=== PATIENT | male | born 1945 | race Caucasian/White ===

== ENCOUNTER 2022-01-03 07:40 | Outpatient (CLI) | payer OTHER, SELFPAY ==
--- NOTE | 2022-01-03 08:07 | MR_ITS ---
WS: [id number] MRI CERVICAL SPINE NONCONTRAST TECHNIQUE: Sagittal T1, T2 and STIR imaging. Axial T2, gradient, and fiesta imaging. CLINICAL INFORMATION: CERVICAL DISC DISORDER COMPARISON: None. FINDINGS: Mild cervical curve. Mild spondylitic changes cervical spine. Disc bulging worse at C3-C4, C4-C5, and C5-C6. Cord signal is normal. C2-C3: Mild LEFT bony foraminal narrowing. Mild disc osteophytic ridging. Spinal canal is patent. C3-C4: Disc osteophyte complex with endplate ridging. Mild facet arthropathy. Mild bilateral bony for aminal narrowing. Spinal canal is patent. C4-C5: Central disc osteophyte protrusion with slight contact of the ventral cervical cord. Advanced LEFT facet arthropathy. Mild bilateral bony foraminal narrowing. C5-C6: Disc osteophyte complex eccentric to the RIGHT. Moderate to advanced RIGHT facet arthropathy. Moderate RIGHT and no significant LEFT bony foraminal narrowing. Spinal canal is patent. C6-C7: No significant disc bulging. Spinal canal and foramen are patent. C7-T1: Disc osteophytic ridging with mild LEFT greater than RIGHT bony foraminal narrowing. Spinal ca nal and is patent. Visualized brain stem structures: Normal. Prevertebral soft tissues: Normal. MR/MR cervical spin wo con* [id number] IMPRESSION: 1. Mild cervical curve. Cord signal is normal. 2. Disc osteophyte protrusion C4-C5 with slight contact of the cervical cord. Mild central canal stenosis. 3. Moderate bony foraminal narrowing RIGHT C5-C6. 4. Asymmetric advanced facet arthropathy LEFT C4-C5 and RIGHT C5-C6. 5. Mild bony foraminal narrowing worse at LEFT C3-C4, LEFT C4-C5, and LEFT C7- T1.
== END 2022-01-03 07:41 | disposition home or self-care (01) ==
PROVIDERS: Visit Provider Family Medicine
DX: M50.221 Other cervical disc displacement at C4-C5 level (principal)
CPT/HCPCS: 72141

== ENCOUNTER → 2022-01-23 14:12 | Outpatient (BNVA) | payer OTHER, SELFPAY | PROVIDERS: PCP Family Medicine; Referring Provider Family Medicine; Visit Provider Orthopaedic Surgery | DX: M54.2 Cervicalgia (principal); M48.02 Spinal stenosis, cervical region; M21.969 Unspecified acquired deformity of unspecified lower leg | CPT/HCPCS: 72050 ==

== ENCOUNTER → 2022-01-24 14:04 | Outpatient (BNVA) | payer OTHER, SELFPAY | PROVIDERS: PCP Family Medicine; Referring Provider Orthopaedic Surgery; Visit Provider Podiatrist Foot & Ankle Surgery | DX: M25.572 Pain in left ankle and joints of left foot (principal) | CPT/HCPCS: 73610 ==

== ENCOUNTER → 2022-07-16 09:16 | Outpatient (BNVA) | payer OTHER, SELFPAY | PROVIDERS: PCP Family Medicine; Visit Provider Family Medicine | DX: I10 Essential (primary) hypertension (principal); E78.5 Hyperlipidemia, unspecified; Z85.46 Personal history of malignant neoplasm of prostate | CPT/HCPCS: 80053; 80061; 84153; 84443; 85025 ==

== ENCOUNTER → 2022-10-27 11:27 | Outpatient (BNVA) | payer OTHER, SELFPAY | PROVIDERS: PCP Family Medicine; Visit Provider Podiatrist Foot & Ankle Surgery | DX: M19.172 Post-traumatic osteoarthritis, left ankle and foot (principal) | CPT/HCPCS: 73610 ==

== ENCOUNTER 2022-12-12 06:15 | Day surgery (SDC) | payer OTHER, SELFPAY ==
[2022-12-11 12:49] VITALS: BMI 26.4
[2022-12-12] VITALS (10 sets, daily range): BP systolic 130–146; BP diastolic 67–76; PULSE 60–74; RESP 12–16; TEMP 17.7–36.3; O2SAT 93–97
[2022-12-12] MEDS: sodium chloride 0.9% 1,000 ML 30 ML IV (07:09)
--- NOTE | 2022-12-12 07:31 | ANES.PREANE2 ---
Pre-Anesthetic Assessment Height/Weight: Height 1.75 m Weight 81.193 kg O2 Del Method 12/12/22 06:33 Preop Diagnosis: Left ankle arthritis Operation Date: 12/12/22 07:50 Proposed Procedures p ?Left ankle fusion 36559,M25.579,M19.179(Left) - Edison Lazaro DPM s Possible subtalar joint arthrodesis, left foot, CPT code 60558(Left) - Edison Lazaro DPM Last intake: Intake Last Liquid Date 12/11/22 Last Liquid Time 23:00 Last Solid Date 12/11/22 Last Solid Time 18:00 Social No alcohol and No tobacco Exam alert, oriented x 3, clear to auscultation bilaterally and regular rate & rhythm (Infrequent irregular heart beat ) Airway Submandibular: within normal limits Cervical ROM: within normal limits Mallampati: Class II Pulmonary Remote history of PE CV/HEM Hypertension None reported Hepatic None reported GI No sig GERD Anesthetic Plan ASA status: 2 Anesthesia: General and Regional (specify below) (Pop Block) Medications/Allergies Home Medications Medication Instructions Recorded Confirmed Last Taken Type omeprazole 20 mg capsule,delayed 20 mg PO DAILY 01/23/22 12/11/22 12/11/22 History release AFO Brace to the left #1 ea 01/24/22 10/27/22 Unknown Rx lovastatin 20 mg tablet See Rx Instructions .Route 06/04/22 12/12/22 12/11/22 Rx .COMPLEX #90 tabs 0800 meloxicam 15 mg tablet See Rx Instructions .Route 06/13/22 12/11/22 12/11/22 Rx .COMPLEX #90 tabs amlodipine 5 mg tablet 5 mg PO DAILY #30 tabs 07/16/22 12/11/22 12/11/22 Rx acetaminophen 500 mg tablet 500 mg PO Q6H PRN Pain 08/12/22 12/12/22 12/11/22 History (Tylenol Extra Strength) 0800 ibuprofen 200 mg tablet 200 mg PO Q6H PRN Pain 08/12/22 12/11/22 12/10/22 20:00 History Allergies Allergy/AdvReac Type Severity Reaction Status Date / Time nortriptyline Allergy Intermediate dysphagia Verified 10/27/22 11:07 lisinopril Allergy Mild ADR-Cough Verified 12/12/22 06:42 propranolol Allergy ALGY-Difficulty Verified 12/12/22 06:43 Swallowing PFSH Anesthesia Medical History Hx of malignant neoplasm of prostate Hyperlipidemia Hypertension Social History Smoking and tobacco status: never smoked Second hand smoke exposure: Yes Alcohol intake: current Alcohol intake frequency: holidays/special occasions only Alcohol type: beer Data Anesthesia Cardiac Studies: No Data to Display
--- NOTE | 2022-12-12 08:03 | P.HP_ITS ---
Providers/Chief Complaint Primary Care Provider: Roger Nassar MD Chief Complaint: M25.579, M19.179 History of Present Illness Cb Mcintyre is a 77 year old male presenting to the clinic for left ankle arthritis. Patient was ordered an AFO sent for triplane support of post medic arthritis of the left ankle. Patient states that he wears his brace but states that his pain has not gotten any better. He is wishing to discuss surgical options. His pain is daily, is unable to stand and walk without instability and pain affecting his overall quality of life. Patient denies any subjective nausea, vomiting, fever, chills, shortness of breath or chest pain. Review of Systems General: Reports: 10 or more systems reviewed and unremarkable except in HPI and below Const: Denies: fever(s) or chills Eyes: Denies: change in vision Card: Denies: chest pain or palpitations Resp: Denies: dyspnea or productive cough GI: Denies: abdominal pain, nausea or vomiting : Denies: flank pain Musc: Reports: extremity pain, joint pain, joint stiffness, limited range of motion and deformity Skin/Breast: Reports: skin tenderness; Denies: rash Neuro: Reports: difficulty walking; Denies: numbness in extremities, sensory changes or frequent falls Psych: Denies: suicidal ideation Lester/Lymph: Denies: easy bruising Medications/Allergies Home Medications Medication Instructions Recorded Confirmed Last Taken Type omeprazole 20 mg capsule,delayed 20 mg PO DAILY 01/23/22 12/11/22 12/11/22 History release AFO Brace to the left #1 ea 01/24/22 10/27/22 Unknown Rx lovastatin 20 mg tablet See Rx Instructions .Route 06/04/22 12/12/22 12/11/22 Rx .COMPLEX #90 tabs 0800 meloxicam 15 mg tablet See Rx Instructions .Route 06/13/22 12/11/22 12/11/22 Rx .COMPLEX #90 tabs amlodipine 5 mg tablet 5 mg PO DAILY #30 tabs 07/16/22 12/11/22 12/11/22 Rx acetaminophen 500 mg tablet 500 mg PO Q6H PRN Pain 08/12/22 12/12/22 12/11/22 History (Tylenol Extra Strength) 0800 ibuprofen 200 mg tablet 200 mg PO Q6H PRN Pain 08/12/22 12/11/22 12/10/22 20:00 History Allergies Allergy/AdvReac Type Severity Reaction Status Date / Time nortriptyline Allergy Intermediate dysphagia Verified 10/27/22 11:07 lisinopril Allergy Mild ADR-Cough Verified 12/12/22 06:42 propranolol Allergy ALGY-Difficulty Verified 12/12/22 06:43 Swallowing PFSH PFSH: Medical History Hx of malignant neoplasm of prostate Hyperlipidemia Hypertension Social History Smoking and tobacco status: never smoked Second hand smoke exposure: Yes Alcohol intake: current Alcohol intake frequency: holidays/special occasions only Alcohol type: beer Dietary Habits: Caffeine: Yes Caffeine intake frequency: coffee Vital Signs Vitals Signs: Last Vital Signs O2 Del Method 12/12/22 06:33 Weight: Weight last 48 hrs Weight 179 lb Physical Exam Narrative: EXAM NARRATIVE: GENERAL: Patient is alert and oriented ?3 and in no acute distress.? The following is a focused bilateral lower extremity exam. VASCULAR: Dorsalis pedis and posterior tibial arteries palpable +2.? Capillary refill time less than 3 seconds to the distal hallux bilaterally. Calf is supple and nontender proximally and distally.? Left ankle edema.? Pedal hair growth present. NEUROLOGICAL: Epicritic and protopathic sensations grossly intact to the lower extremities.? +2 Achilles tendon reflex noted bilaterally.? Negative Tinel sign upon percussion of lower extremity nerves. DERMATOLOGICAL: Lower extremity skin is well-hydrated, normal texture and turgor.? There are no open sores or lesions noted to the lower extremities.? No erythema or ecchymosis present to the bilateral legs and feet. MUSCULOSKELETAL: Exquisite tenderness to palpation at the left ankle globally. Tenderness at the subtalar joint and sinus tarsi. Calcaneal varus.? There is tenderness at the medial gutter, medial deltoid, lateral collateral ligaments and lateral gutter.? Positive talar tilt test to the left ankle.? Talus is in varus and similar reducible. CARDIOVASCULAR: S1, S2, normal rate, normal rhythm.? Dorsalis pedis and posterior tibial arteries palpable. LUNGS: Clear to auscltation, no use of acessory muscles, no crackles or wheezes. A&P Assessment and plan (1) Cavovarus deformity of foot: (2) Arthritis of left ankle: (3) Left ankle instability: (4) Acquired rearfoot varus: Qualifiers: Laterality: left Qualified Code(s): M21.172 - Varus deformity, not elsewhere classified, left ankle Plan 3 views left ankle shows joint space narrowing and varus position of the talus, tibiotalar articular surfaces are not congruent.? 19 degrees of talar tilt into varus appreciated.? Subchondral sclerosis and loss of joint space appreciated with dorsal osteophytes. Sclerosis of the subtalar joint. Calcaneal varus. Has been greater than 3 months out from his not articulating gauntlet style AFO to the left lower extremity and is experiencing increased pain.? States advanced bracing and immobilization has not yielded any relief.? He was hopeful that this would be a viable option unfortunately this is not allowing him to enjoy his hobbies and carry out everyday activities without significant pain.? He is wishing to discuss arthrodesis of his left ankle.? He has discussed total ankle replacement as well as arthrodesis with other surgeons as well as myself previously.? He states that he has given this thought and research and would like to proceed with arthrodesis at next available opportunity. I am recommending tibial talocalcaneal arthrodesis to reduce the rear foot varus. I reviewed at length with the patient, the risks, potential complications, benefits, alternatives, expectations, and typical outcomes associated with the surgery. The risks and potential complications were explained in detail, including but not limited to infection, wound dehiscence or soft tissue complications, bleeding and hematoma, chronic edema, neuritis or nerve damage producing numbness or chronic pain, CRPS, failure to relieve pain or worsening pain, thick / painful / unsightly scar, limited motion / stiffness, malposition, delayed union, malunion, or nonunion, fracture, reaction to implants, anesthetic complications, venous thromboembolism, and deformity recurrence.? I discussed the notion of no regrets with the patient as it pertains to complications and outcomes. The patient seemed to understand the nature of the proposed care and required convalescence. They asked appropriate questions, answered to their satisfaction. They are aware no guarantees can be made as to a satisfactory outcome and they understand there may be other possible unforeseen complications or outcomes not listed here that will be treated accordingly if they arise. There were no written or implied guarantees given to the patient. They gave informed consent to proceed. 12/12/2022 left tibial talocalcaneal arthrodesis.? General anesthetic, popliteal block, OR table, supine, TPS, mini C arm, [place] hardware.? 120 minutes. Coding Level of Care Code Acute Code for [facility] [place] Fwd Diagnoses Cavovarus deformity of foot Q66.10 Arthritis of left ankle M19.072 Left ankle instability M25.372 Acquired rearfoot varus M21.172 Laterality: left
--- NOTE | 2022-12-12 08:03 | W.PM.OPSUD ---
Surgery/Procedure H&P Update DATE OF PROCEDURE: December 12, 2022 DATE H&P PERFORMED: 12/12/22 CHANGES TO PREVIOUS DOCUMENTATION: None PREOP DIAGNOSIS: Left ankle arthritis PLANNED PROCEDURE: Operation Date: 12/12/22 07:50 Proposed Procedures p ?Left ankle fusion 49624,M25.579,M19.179(Left) - Edison Lazaro DPM s Possible subtalar joint arthrodesis, left foot, CPT code 57319(Left) - Edison Lazaro DPM
[2022-12-12] MEDS: ceFAZolin 2,000 MG in sodium chloride 0.9% (plus) 50 ML 100 MG IV (08:22)
--- NOTE | 2022-12-12 11:19 | PM.OP ---
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 Procedure done: Left ankle fusion. CPT code 99377 Left subtalar joint fusion. CPT code 81486 Implants: [place] Silver back lateral tibial talocalcaneal plate [place] locking and nonlocking screws 4.2 millimeter screws, 4.5 millimeter screws [place] V92 [place] 7 mm headed screw at subtalar joint 2-0 Vicryl 3-0 Vicryl Skin kimberlyn Hand Salter: Diana Estimated blood loss: 20 120 min IV fluids: 0 Urine output: None Complications: None Brief History: 3 views left ankle shows joint space narrowing and varus position of the talus, tibiotalar articular surfaces are not congruent.? 19 degrees of talar tilt into varus appreciated.? Subchondral sclerosis and loss of joint space appreciated with dorsal osteophytes.? Sclerosis of the subtalar joint.? Calcaneal varus.? Has been greater than 3 months out from his not articulating gauntlet style AFO to the left lower extremity and is experiencing increased pain.? States advanced bracing and immobilization has not yielded any relief.? He was hopeful that this would be a viable option unfortunately this is not allowing him to enjoy his hobbies and carry out everyday activities without significant pain.? He is wishing to discuss arthrodesis of his left ankle.? He has discussed total ankle replacement as well as arthrodesis with other surgeons as well as myself previously.? He states that he has given this thought and research and would like to proceed with arthrodesis at next available opportunity.? I am recommending tibial talocalcaneal arthrodesis to reduce the rear foot varus.? I reviewed at length with the patient, the risks, potential complications, benefits, alternatives, expectations, and typical outcomes associated with the surgery. The risks and potential complications were explained in detail, including but not limited to infection, wound dehiscence or soft tissue complications, bleeding and hematoma, chronic edema, neuritis or nerve damage producing numbness or chronic pain, CRPS, failure to relieve pain or worsening pain, thick / painful / unsightly scar, limited motion / stiffness, malposition, delayed union, malunion, or nonunion, fracture, reaction to implants, anesthetic complications, venous thromboembolism, and deformity recurrence.? I discussed the notion of no regrets with the patient as it pertains to complications and outcomes. The patient seemed to understand the nature of the proposed care and required convalescence. They asked appropriate questions, answered to their satisfaction. They are aware no guarantees can be made as to a satisfactory outcome and they understand there may be other possible unforeseen complications or outcomes not listed here that will be treated accordingly if they arise. There were no written or implied guarantees given to the patient. They gave informed consent to proceed. Procedure: Under mild sedation the patient was brought to the operating room and placed onto the operating table in supine position. A timeout was performed. Anesthesia was then administered by the anesthesia service. Left popliteal block was performed per anesthesia service. Local anesthesia was injected by myself with 0.5% Marcaine plain in a left five-point nerve block. Well-padded pneumatic tourniquet was applied to the left thigh. The left lower extremity was then scrubbed, prepped and draped utilizing normal aseptic technique. The left lower extremity was exanguinated with an Esmarch bandage and the tourniquet was inflated to 250 mmHg. Attention was directed to the left lateral ankle where a linear longitudinal incision was made over the lateral malleolus coursing proximally to the distal fibula. Incision was made through skin with a #15 blade with dissection carried down through subcutaneous tissue to the layer of periosteum utilizing a combination of sharp and blunt technique. Care was taken to retract and preserve neurovascular and tendinous structures. All bleeders were ligated and cauterized as necessary. Periosteal incision was made and the distal fibula was transected utilizing a Mart osteotomy giving adequate room for hardware fixation of the tibiotalar calcaneal talar joint. The fibula was resected and passed from the operative site and kept on the back table to use as bone graft potentially for the arthrodesis sites. Peroneal tendons were resected and passed from the operative field. Tibiotalar joint was distracted utilizing Steinmann pins and an intermittent and denuded of all articular surface utilizing curettage, osteotomes, saline flush followed by subchondral drilling and fenestrating with fenestrating drill bit both of the distal tibia and talar dome. The subtalar joint was then distracted in a similar fashion utilizing intermittent and Steinmann pins and prepared for arthrodesis utilizing curettage and osteotomes, the subtalar joint both of the articular surface of the calcaneus and inferior portion of the talus were denuded the middle facet anterior side and posterior facet of all articular surface followed by saline flush and subchondral drilling utilizing fenestrating drill bit as well as for scaling with osteotome. The tibiotalar joint and the subtalar joint were held in neutral and slight valgus, neutral dorsiflexion and the second toe held in line with the patella, temporary fixation was utilized with transfixing the ankle joint and subtalar joint with a Steinmann pin followed by fixation utilizing standard AO technique of the tibiotalar and subtalar joint with a silver VAC lateral TTC anatomic plate provided by Leslie with a combination of locking and nonlocking screws. Fixation started within the talus and then compression of the tibiotalar joint utilizing eccentric hole within the plate. Tibial and talar screws were utilized for additional fixation with excellent bony apposition and compression noted. Next a homerun screw from posterior inferior to superior anterior within the posterior facet was utilized this was a [place] 7 mm headed screw with excellent bony apposition and compression noted followed by additional fixation of the lateral calcaneus with an additional 6 [place] screws locking and nonlocking with excellent bony apposition and compression noted. Intraoperative C arm confirmed excellent reduction of the deformity. Rear foot varus was slightly valgus position after arthrodesis and ankle joint was in neutral dorsiflexion. Excellent bony apposition and compression noted at the arthrodesis sites. Bone voids were packed with V92, this was minimal. The incision was flushed with copious months of sterile skin solution and closed in a layered fashion. Periosteum reapproximated utilizing 2-0 Vicryl. Subcutaneous tissue with 3-0 Vicryl and skin with kimberlyn. Dressings consisting of Xeroform, 4 x 4's, Kerlix, multilayer compressive posterior splint with ankle joint held in neutral position was applied. Tourniquet was deflated and a prompt hyperemic response was noted to the distal digits of the left foot. Patient tolerated the procedure and anesthesia well and was transferred to the PACU with vital signs stable and vascular status intact. Following a period of postoperative monitoring he will be discharged home. He is to remain strict nonweightbearing to the left lower extremity and elevate the left foot while resting. He was provided a prescription for pain medication to be taken judiciously as needed for pain. He is also prescribed Lovenox 40 mg to be given subcu daily for the next 30 days to help potentially reduce the risk of deep vein thrombosis while he is nonweightbearing. Patient was given at home care instructions and follow-up as well as my cell phone number to contact with any postoperative questions or concerns.
[2022-12-12] MEDS: fentaNYL 50 mcg/mL INJ 2mL IVP (11:37)
[2022-12-12] MEDS: oxyCODONE-APAP 10-325 mg Tablet 1 TAB PO (12:19)
--- NOTE | 2022-12-12 12:56 | XR_ITS ---
WS: [id number] EXAMINATION: XR ankle LT 2V [id number] REASON FOR EXAM: OR PICS COMPARISON: Preoperative studies ORDER DATE: 12/12/2022 12:56 PM TECHNIQUE: 2 C-arm views obtained intraoperatively.. X-RAY FINDINGS: There are postsurgical changes of arthrodesis involving the ankle and subtalar joint with multiple sc rews and long side plate. There has been resection of the distal fibula XR/XR ankle LT 2V [id number] IMPRESSION: Postsurgical changes as noted above. Fluoroscopy time 32.6 seconds.
--- NOTE | 2022-12-12 12:59 | ANE.PACU2 ---
Inpatient post-anesthesia follow up: Vital signs: Temperature 97.3 F Pulse Rate 61 Respiratory Rate 16 Blood Pressure 130/67 Pulse Oximetry 95 Oxygen Delivery Me thod Room Air Oxygen Flow Rate 6 Fraction of Inspir ed Oxygen Hydration adequate: Yes Nausea and vomiting: No Pain level: 3 Mental status: Baseline
== END 2022-12-12 12:50 | disposition home or self-care (01) ==
PROVIDERS: PCP Family Medicine; Visit Provider Podiatrist Foot & Ankle Surgery
PROC: (CPT 28740; principal; 2022-12-12 07:40)
PROC: (CPT 28725; 2022-12-12 07:40)
DX: M19.072 Primary osteoarthritis, left ankle and foot (principal); M25.372 Other instability, left ankle; M21.172 Varus deformity, not elsewhere classified, left ankle; Z86.711 Personal history of pulmonary embolism; I10 Essential (primary) hypertension; E78.5 Hyperlipidemia, unspecified
CPT/HCPCS: 27870; 28725; 73600; 76000; C1713 ×2; J0690; J1100; J1170; J2405; J2704; J2795; J3010; J3490; J7030

== ENCOUNTER → 2022-12-18 15:13 | Outpatient (BNVA) | payer OTHER, SELFPAY | PROVIDERS: PCP Family Medicine; Visit Provider Podiatrist Foot & Ankle Surgery | DX: Z98.890 Other specified postprocedural states (principal) | CPT/HCPCS: 73610 ==

== ENCOUNTER → 2022-12-25 13:38 | Outpatient (BNVA) | payer OTHER, SELFPAY | PROVIDERS: PCP Family Medicine; Visit Provider Podiatrist Foot & Ankle Surgery | DX: Z98.890 Other specified postprocedural states (principal) | CPT/HCPCS: 73610 ==

== ENCOUNTER 2022-12-25 14:49 | Outpatient (CLI) | payer OTHER, SELFPAY | END 2022-12-25 14:50 | disposition home or self-care (01) | LOC: SPT 14:50 | PROVIDERS: PCP Family Medicine; Visit Provider Podiatrist Foot & Ankle Surgery | DX: Z46.89 Encounter for fitting and adjustment of other specified devices (principal); Z98.1 Arthrodesis status; Z98.890 Other specified postprocedural states | CPT/HCPCS: 97760; L4361 ==

== ENCOUNTER → 2023-01-08 13:54 | Outpatient (BNVA) | payer OTHER, SELFPAY | PROVIDERS: PCP Family Medicine; Visit Provider Podiatrist Foot & Ankle Surgery | DX: Z98.1 Arthrodesis status (principal); Z98.890 Other specified postprocedural states | CPT/HCPCS: 73610 ==

== ENCOUNTER → 2023-01-22 12:38 | Outpatient (BNVA) | payer OTHER, SELFPAY | PROVIDERS: PCP Family Medicine; Visit Provider Podiatrist Foot & Ankle Surgery | DX: Z98.1 Arthrodesis status (principal); Z98.890 Other specified postprocedural states | CPT/HCPCS: 73610 ==

== ENCOUNTER → 2023-02-04 09:09 | Outpatient (BNVA) | payer OTHER, SELFPAY | PROVIDERS: PCP Family Medicine; Visit Provider Family Medicine | DX: R35.0 Frequency of micturition (principal) | CPT/HCPCS: 81000; 87086 ==

== ENCOUNTER → 2023-02-12 14:22 | Outpatient (BNVA) | payer OTHER, SELFPAY | PROVIDERS: PCP Family Medicine; Visit Provider Podiatrist Foot & Ankle Surgery | DX: Z98.890 Other specified postprocedural states (principal); Z98.1 Arthrodesis status | CPT/HCPCS: 73610 ==

== ENCOUNTER → 2023-03-12 15:00 | Outpatient (BNVA) | payer OTHER, SELFPAY | PROVIDERS: PCP Family Medicine; Visit Provider Podiatrist Foot & Ankle Surgery | DX: Z98.890 Other specified postprocedural states (principal) | CPT/HCPCS: 73610 ==

== ENCOUNTER → 2023-04-01 10:16 | Outpatient (BNVA) | payer OTHER, SELFPAY | PROVIDERS: PCP Family Medicine; Visit Provider Podiatrist Foot & Ankle Surgery | DX: Z98.1 Arthrodesis status (principal); T84.498A Other mechanical complication of other internal orthopedic devices, implants and grafts, initial encounter; T84.84XA Pain due to internal orthopedic prosthetic devices, implants and grafts, initial encounter; Y79.2 Prosthetic and other implants, materials and accessory orthopedic devices associated with adverse incidents; M96.0 Pseudarthrosis after fusion or arthrodesis | CPT/HCPCS: 73610 ==

== ENCOUNTER 2023-04-10 05:39 | Day surgery (SDC) | payer MEDICARE, SELFPAY ==
[2023-04-09 15:09] VITALS: BMI 25.8
[2023-04-10] VITALS (14 sets, daily range): BP systolic 121–153; BP diastolic 63–77; PULSE 60–84; RESP 12–18; TEMP 36.4–36.8; O2SAT 92–97
--- NOTE | 2023-04-10 06:17 | P.OP_ITS ---
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 CPT code 31171 Left subtalar joint fusion. CPT code 77222 Left ankle fusion. CPT code 40359 Implants: [place] 200 mm T2 ankle nail Dianne 5 mm screw x4 3-0 Vicryl 2-0 Vicryl Skin kimberlyn Surgeon: Edison Lazaro D.P.M. Senior Genetic Counselor: Sejal Estimated blood loss: 50 See intraoperative documentation IV fluids: See intraoperative documentation Urine output: None Complications: Known Brief History: Pleasant 77-year-old male accompanied by his presents to podiatry clinic with increased pain of the left ankle.? X-rays left ankle 3 views taken reviewed per my interpretation there is hardware failure just superior to the ankle arthrodesis site.? Site of failure is indicative? of bony nonunion, likely result of fatigue of hardware, the hardware failure is at the level of a screw and is the nearest screw hole superior to the arthrodesis site.? I discussed radiographic findings and clinical findings with patient and his .? Unfortunately this is a large setback and is indicating a underlying bony nonunion.? Discussed nonsurgical management with immobilization and bone stimulator, risks of nonsurgical management include need for surgery down the road.? Also discussed surgical management which would entail hardware removal, resection of nonunion and intramedullary nailing left ankle and subtalar joint.? After lengthy conversation discussing risk versus benefits patient would like to proceed with hardware removal and resection of nonunion with intramedullary nail fixation as this has the opportunity to get him back on track to healing potentially quicker.? The concern is that should we try bone stimulator and may result in further delayed healing and necessitate surgery down the road and pushing his overall healing further away.? I reviewed at length with the patient, the risks, potential complications, benefits, alternatives, expectations, and typical outcomes associated with the surgery. The risks and potential complications were explained in detail, including but not limited to infection, wound dehiscence or soft tissue complications, bleeding and hematoma, chronic edema, neuritis or nerve damage producing numbness or chronic pain, CRPS, failure to relieve pain or worsening pain, thick / painful / unsightly scar, limited motion / stiffness, malposition, delayed union, malunion, or nonunion, fracture, reaction to implants, anesthetic complications, venous thromboembolism, and deformity recurrence.? I discussed the notion of no regrets with the patient as it pertains to complications and outcomes. The patient seemed to understand the nature of the proposed care and required convalescence. They asked appropriate questions, answered to their satisfaction. They are aware no guarantees can be made as to a satisfactory outcome and they understand there may be other possible unforeseen complications or outcomes not listed here that will be treated accordingly if they arise. There were no written or implied guarantees given to the patient. They gave informed consent to proceed. Procedure: Under mild sedation the patient was brought to the operating room and placed onto the operating table in supine position. A timeout was performed. Anesthesia was then administered by the anesthesia service. Of note popliteal block to the left lower extremity was performed per anesthesia preoperatively. Well-padded pneumatic tourniquet was applied to the left high thigh. The left lower extremity was scrubbed, prepped and draped utilizing normal aseptic technique. Left lower extremity was exanguinated with an Esmarch bandage and the tourniquet inflated to 300 mmHg. Attention was directed to the left lateral ankle where previous incision was utilized, directly over previous incision a #15 blade was utilized to incise skin with dissection carried down through subcutaneous tissue to the layer of hardware utilizing sharp and blunt technique. Care was taken to retract and preserve neurovascular and tendinous structures. All bleeders were ligated and cauterized as necessary. Direct visualization of the lateral plate showed failure of the plate just proximal to the arthrodesis site. All screws and plate were removed in total and passed from the operative field, these were sent to sterile processing to be packaged and sent with the patient per his request to be taken home. The arthrodesis site was inspected, laterally there was incomplete bony fusion, further dissection into the ankle joint arthrodesis site revealed that centrally there was bony union appreciated and this was left undisturbed, laterally there was debridement of nonunion. Debridement down to healthy bone followed by subchondral drilling of the talar dome and tibial plafond was performed and all bony voids were packed with bio 4. Next utilizing standard technique a [employer] T2 nail was inserted this was a 200 mm in length by 12 Tobar diameter nail with 5 degrees valgus built into the nail set at dynamic locking. Talar screw was inserted first followed by tibial screws and compression was applied internally followed by calcaneal screw. Excellent bony apposition and compression noted as well as maintained alignment of ankle joint in neutral both in sagittal plane and frontal plane, slightly externally rotat ed and transverse plane. AP, oblique and lateral views utilizing intraoperative C-arm confirmed excellent placement of intramedullary nail. All incisions were irrigated with copious amounts of sterile saline solution. Percutaneous incisions for screw insertion of the nail were closed with 4-0 nylon. Lateral incision was irrigated and closed in a layered fashion with periosteum and deep fascia reapproximated with 2-0 Vicryl, subcutaneous tissue reapproximated 3-0 Vicryl and skin with skin kimberlyn. Surgical dressing was then applied consisting of Unna boot, sterile 4 x 4 gauze, Kerlix and multilayer well-padded Patterson compression posterior splint. Tourniquet was deflated and a prompt hyperemic response was noted to the distal digits of the left foot. Patient tolerated the procedure and anesthesia well and was transferred to the PACU with vital signs stable and vascular status intact. Following a period of postoperative monitoring he will be discharged home. He is to remain strict nonweightbearing to the left lower extremity. He is to elevate the left foot while resting. He was prescribed hydrocodone 10/325 mg to be taken every 4 hours judiciously as needed for pain. He was also prescribed Zofran to be taken for nausea as needed every 8 hours. He was also prescribed 40 mg syringes of Lovenox to be taken subcutaneously once daily for DVT prophylaxis. Patient was given at home care instructions, scheduled follow-up and my cell phone number to contact me with any postoperative questions or concerns.
--- NOTE | 2023-04-10 06:17 | W.PM.OPSUD ---
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 PLANNED PROCEDURE: Operation Date: 04/10/23 07:00 Proposed Procedures p ?deep hardware removal left foot and ankle, left subtalar joint fusion and left ankle fusion 93211, 19070 and 56144,T84.498A,T84.84 XA,M96.0, M24.671M12.571,(Left) - Edison Lazaro DPM s Subtalar Joint Fusion(Left) - Edison Lazaro DPM
[2023-04-10] MEDS: scopolamine 1.5 Patch 1 PATCH TRANSDERMA (06:29)
[2023-04-10] MEDS: diphenhydrAMINE 50 mg/mL SDV 1mL 12.5 MG IVP (06:29)
[2023-04-10] MEDS: ondansetron 2 mg/ML SDV 2 mL 4 MG IVP (06:29)
[2023-04-10] MEDS: sodium chloride 0.9% 1,000 ML 30 ML IV (06:30)
--- NOTE | 2023-04-10 07:02 | ECG_ITS ---
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 Measurements Intervals [place] Rate: 50 P: 23 TN: 189 QRS: -6 QRSD: 89 T: -6 QT: 415 QTc: 382 Interpretive Statements SINUS BRADYCARDIA No previous ECG available for comparison Electronically Signed On 04-10-2023 13:40:48 CDT by Terri Jade M.D. [id number]
--- NOTE | 2023-04-10 07:08 | P.ANESASSM_ITS ---
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 Operation Date: 04/10/23 07:00 Proposed Procedures p ?deep hardware removal left foot and ankle, left subtalar joint fusion and left ankle fusion 12917, 95572 and 45203,T84.498A,T84.84 XA,M96.0, M24.671M12. 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 for regional block and General Other: TIVA with Popliteal Block (consented) Medications/Allergies Home Medications Medication Instructions Recorded Confirmed Last Taken Type omeprazole 20 mg capsule,delayed 20 mg PO DAILY 01/23/22 04/10/23 04/09/23 History release lovastatin 20 mg tablet See Rx Instructions .Route 06/04/22 04/10/23 04/09/23 Rx .COMPLEX #90 tabs amlodipine 5 mg tablet 5 mg PO DAILY #30 tabs 07/16/22 04/10/23 04/09/23 Rx acetaminophen 500 mg tablet 500 mg PO Q6H PRN Pain 08/12/22 04/10/23 04/07/23 History (Tylenol Extra Strength) ibuprofen 200 mg tablet 200 mg PO Q6H PRN Pain 08/12/22 04/10/23 04/09/23 History Cam boot to the left #1 ea 12/25/22 04/01/23 Unknown Rx oxybutynin chloride 5 mg 5 mg PO DAILY #30 tabs 02/04/23 04/10/23 04/09/23 Rx tablet,extended release 24 hr hydrocodone 10 mg-acetaminophen 1 tab PO Q4H 7 days #30 tabs 04/09/23 Unknown Rx 325 mg tablet enoxaparin 40 mg/0.4 mL 40 mg (0.4 mL) SUBCUT DAILY 20 04/10/23 Unknown Rx subcutaneous syringe (Lovenox) days #8 mL ondansetron HCl 8 mg tablet 8 mg PO Q8H PRN nausea and 04/10/23 Unknown Rx vomiting 14 days #42 tabs Allergies Allergy/AdvReac Type Severity Reaction Status Date / Time nortriptyline Allergy Intermediate dysphagia Verified 04/10/23 06:05 lisinopril Allergy Mild ADR-Cough Verified 04/10/23 06:05 propranolol Allergy ALGY-Difficulty Verified 04/10/23 06:05 Swallowing Current Medications Generic Name Dose Route Start Last Admin Trade Name Freq PRN Reason Stop Dose Admin Diphenhydramine HCl 12.5 mg 04/10/23 06:00 04/10/23 06:29 Diphenhydramine 50 Mg/Ml Sdv 1ml IVP 12.5 mg ONCE PRN Administration PONV Sodium Chloride 1,000 mls @ 30 mls/hr 04/10/23 06:00 04/10/23 06:30 Sodium Chloride 0.9% IV 04/11/23 05:59 30 mls/hr .Q24H RAYSA Administration Ondansetron HCl 4 mg 04/10/23 06:00 04/10/23 06:29 Ondansetron 2 Mg/Ml Sdv 2 Ml IVP 4 mg ONCE PRN Administration NAUSEA AND VOMITING PFSH Anesthesia Medical History Hx of malignant neoplasm of prostate Hyperlipidemia Hypertension Surgical History History of prostatectomy 2009 for prostate cancer Social History Smoking and tobacco status: never smoked Second hand smoke exposure: Yes Alcohol intake: current Alcohol intake frequency: holidays/special occasions only Alcohol type: beer Substance/Drug Use: never Data Anesthesia Cardiac Studies: No Data to Display
[2023-04-10] MEDS: midazolam 1 mg/mL INJ 2 mL 2 MG IVP (07:58)
[2023-04-10] MEDS: HYDROmorphone 1 mg/mL INJ 1 mL 0.5 MG IVP ×2 (09:00→14:20)
[2023-04-10] MEDS: ceFAZolin 2,000 MG in sodium chloride 0.9% (plus) 50 ML 100 MG IV (10:00)
[2023-04-10] MEDS: BUPivacaine 0.5% INJ 10 mL INJECTION (10:15)
--- NOTE | 2023-04-10 10:24 | ANES.PROC ---
Anesthesia Procedures Procedure/Date: 04/10/23 Nerve Block ^: Nerve Block 1: Main Anesthesia: general anesthesia Time Out Performed: Yes Consent: requested by attending/covering physician, from patient, risks and benefits reviewed and patient agrees to proceed Nerve block location: popliteal (left) Anesthesia monitors applied: pulse oximetry, EKG, BP cuff and oxygen Nerve block position: supine Anesthetic Used: ropivicaine 0.5% Amount of anesthesia used (mL): 30 Ultrasound used to: recognize landmarks Nerve Stimulator Used?: No Interscalene/Femoral BLK: 4 stimuplex 21 g needle used for position and inplane approach Injection: neg aspiration of heme Patient Tolerated Procedure: well Complications: none
--- NOTE | 2023-04-10 13:20 | PC.NURSE ---
Pt arrived to PACU, resting comfortably, O2 at 3L/min via NC. Dressing to left foot C/D/I, left toes p/w/d, cap refill < 3 seconds. FOB elevated.
[2023-04-10] MEDS: fentaNYL 50 mcg/mL INJ 2mL IVP (13:40)
[2023-04-10] MEDS: HYDROcodone-acetaminophen 10-325 mg Tablet 1 TAB PO (14:27)
--- NOTE | 2023-04-10 14:33 | XR_ITS ---
WS: [id number] Left ankle, 3 views, 04/10/2023 Clinical Data: post op Comparison: Left ankle, 04/01/2023 Findings: The patient now has an intramedullary christ extending from the mid tibia through the talus and calcaneu s fixed with proximal and distal screws fusing the ankle mortise. The distal third of the left fibula has been resected. There is a fiberglass wrap around the leg. There are surgical kimberlyn adjacent to the lateral distal leg. XR/XR ankle LT min 3V* [id number] Impression: 1. Insertion of intramedullary christ in the distal tibia and through the talus an d calcaneus for arthrodesis of left ankle. 2. Resection of distal left fibula unchanged.
--- NOTE | 2023-04-10 17:18 | ANE.PACU2 ---
Inpatient post-anesthesia follow up: Vital signs: Temperature 98 F Pulse Rate 68 Respiratory Rate 16 Blood Pressure 121/67 Pulse Oximetry 94 Oxygen Delivery Me thod Room Air Oxygen Flow Rate 2 Fraction of Inspir ed Oxygen Hydration adequate: Yes Nausea and vomiting: No Pain level: 3 Mental status: Baseline
== END 2023-04-10 15:30 | disposition home or self-care (01) ==
PROVIDERS: PCP Family Medicine; Visit Provider Podiatrist Foot & Ankle Surgery
PROC: (CPT 20680; principal; 2023-04-10 08:50)
PROC: (CPT 28725; 2023-04-10 08:50)
PROC: (CPT 27870; 2023-04-10 08:50)
DX: T84.098A Other mechanical complication of other internal joint prosthesis, initial encounter (principal); T84.84XA Pain due to internal orthopedic prosthetic devices, implants and grafts, initial encounter; M96.0 Pseudarthrosis after fusion or arthrodesis; I10 Essential (primary) hypertension; E78.5 Hyperlipidemia, unspecified; Z79.899 Other long term (current) drug therapy; Z79.01 Long term (current) use of anticoagulants; Z86.711 Personal history of pulmonary embolism; Z86.718 Personal history of other venous thrombosis and embolism; Z98.1 Arthrodesis status; Y83.8 Other surgical procedures as the cause of abnormal reaction of the patient, or of later complication, without mention of misadventure at the time of the procedure
CPT/HCPCS: 20680; 27824; 27825; 27870; 73610; 76000; 93005; C1713; J0690; J1100; J1170; J1200; J2250; J2405; J2704; J2795; J3010; J3490; J7030

== ENCOUNTER → 2023-04-20 07:43 | Outpatient (BNVA) | payer MEDICARE, SELFPAY | PROVIDERS: PCP Family Medicine; Visit Provider Podiatrist Foot & Ankle Surgery | DX: Z98.890 Other specified postprocedural states (principal) | CPT/HCPCS: 73610; 99024 ==

== ENCOUNTER → 2023-04-27 07:52 | Outpatient (BNVA) | payer MEDICARE, SELFPAY | PROVIDERS: PCP Family Medicine; Visit Provider Podiatrist Foot & Ankle Surgery | DX: Z98.1 Arthrodesis status (principal); Z98.890 Other specified postprocedural states | CPT/HCPCS: 73610; 99024 ==

== ENCOUNTER → 2023-05-21 12:51 | Outpatient (BNVA) | payer MEDICARE, SELFPAY | PROVIDERS: PCP Family Medicine; Visit Provider Podiatrist Foot & Ankle Surgery | DX: Z98.890 Other specified postprocedural states (principal); M96.0 Pseudarthrosis after fusion or arthrodesis; T84.498S Other mechanical complication of other internal orthopedic devices, implants and grafts, sequela; Y79.2 Prosthetic and other implants, materials and accessory orthopedic devices associated with adverse incidents | CPT/HCPCS: 73610; 99024 ==

== ENCOUNTER → 2023-06-10 14:34 | Outpatient (BNVA) | payer MEDICARE, SELFPAY | PROVIDERS: PCP Family Medicine; Visit Provider Podiatrist Foot & Ankle Surgery | DX: M96.0 Pseudarthrosis after fusion or arthrodesis (principal); T84.498A Other mechanical complication of other internal orthopedic devices, implants and grafts, initial encounter; Y79.2 Prosthetic and other implants, materials and accessory orthopedic devices associated with adverse incidents | CPT/HCPCS: 73610; 99024 ==

== ENCOUNTER → 2023-07-08 15:23 | Outpatient (BNVA) | payer MEDICARE, SELFPAY | PROVIDERS: PCP Family Medicine; Visit Provider Podiatrist Foot & Ankle Surgery | DX: Z98.890 Other specified postprocedural states (principal); M96.0 Pseudarthrosis after fusion or arthrodesis | CPT/HCPCS: 73610; 99024 ==

== ENCOUNTER → 2023-08-05 11:23 | Outpatient (BNVA) | payer MEDICARE, SELFPAY | PROVIDERS: PCP Family Medicine; Visit Provider Podiatrist Foot & Ankle Surgery | DX: Z98.890 Other specified postprocedural states (principal); M96.0 Pseudarthrosis after fusion or arthrodesis | CPT/HCPCS: 73610; 99024 ==

== ENCOUNTER → 2024-04-25 16:34 | Outpatient (BNVA) | payer MEDICARE, SELFPAY | PROVIDERS: PCP Family Medicine; Visit Provider Family Medicine | DX: Z85.46 Personal history of malignant neoplasm of prostate (principal); I10 Essential (primary) hypertension; E78.5 Hyperlipidemia, unspecified | CPT/HCPCS: 80053; 80061; 84153; 85025 ==

== ENCOUNTER 2024-06-08 07:28 | Inpatient (IN) | payer MEDICARE, SELFPAY ==
[2024-06-08] VITALS (18 sets, daily range): BP systolic 114–186; BP diastolic 64–89; PULSE 60–96; RESP 16–22; TEMP 36.3–37; O2SAT 73–99; BMI 25.1
--- NOTE | 2024-06-08 07:43 | CT_ITS ---
WS: [id number] CT ABDOMEN AND PELVIS WITH CONTRAST HISTORY: abd pain TECHNIQUE: Imaging performed of the abdomen and pelvis with IV contrast. Single phase imaging of the abdomen. Coronal and sagittal reformats are submitted. All CT scans at [facility] use at [address] one of these dose optimization techniques: automated exposure control; mA and/or kV adjustment per patient size (includes targeted exams where dose is matched to clinical indication); or iterative re construction. IV CONTRAST: Omnipaque 350; 100 mL IV. Oral contrast: No DLP: 548.63 mGy.cm COMPARISON: None available. Lower thorax: Increasing opacification at the LEFT lung base. Mild dependent changes at the RIGHT mary jo g base. Heart is normal size. No hiatal hernia. Liver/biliary system: Normal size with no intrahepatic dilatation. Gallbladder: Prior cholecystectomy. There is mild intrahepatic duct dilatation. This may be related t o the prior cholecystectomy. Common bile duct is normal size. Pancreas: Mild pancreatic atrophy and fatty replacement. Spleen: Normal size spleen. No mass or infarct. Adrenal glands: Normal. Right kidney: Normal. Left kidney: Normal size kidney with no obstruction. There are a few scattered too small to character ize hypodensities. Aorta: Ectatic atherosclerosis aorta. Mesenteric arteries are patent. Lymphadenopathy: None. Free fluid: Small amount of free fluid in the pelvis. GI tract: Abnormal small bowel in the central mesentery and RIGHT lower abdomen. There are dilated sm all bowel loops with mild wall hyperemia. Small bowel loops measuring 3.2 cm in diameter. There is si gnificant mesenteric edema between several of the small bowel loops. There is a focal area of mesente pamella tethering. One of the small bowel loops has decreased enhancement in the RIGHT lower quadrant. No free air is identified. Focal transition in the RIGHT lower quadrant associated with the ischemic ap pearing bowel loop. The appendix appears normal. Increased fecal retention throughout the colon. Abdominal wall: Unremarkable abdominal wall. No hernia. Pelvis: Free fluid in the pelvis. Calcified iliac arteries. Urinary bladder is only minimally distend ed. Bones: Extensive degenerative changes in the lumbar spine. Prior fusion hardware at L3-4. CT/CT abdomen pelvis w con* [id number] IMPRESSION: 1. High-grade small bowel obstruction with a transition point in the RIGHT low er quadrant. Ischemic changes in the distal small bowel loops at the site of th e obstruction with extensive mesenteric edema. No free air is identified at thi s time but patient is at risk for perforation. 2. Small amount of free fluid in the pelvis. 3. Mild dependent changes at the LEFT lung base may be developing pneumonia or pneumonitis. 4. Prior cholecystectomy. 5. Atherosclerosis aorta and iliac arteries. Notified Jhony Delarosa MD at 06/08/2024 10:09 AM.
--- NOTE | 2024-06-08 07:43 | ED_ITS ---
HPI - Abdominal Pain 2 General: Chief Complaint: Abdominal Pain Stated Complaint: v,pain in abd Time Seen by Provider: 06/08/24 07:29 Source: patient Mode of arrival: ambulatory Limitations: no limitations History of Present Illness: 78-year-old male states that he has been having nausea vomiting along with lower abdominal pain this morning. States pain is suprapubic left lower quadrant states been sharp in nature rates an 8 out of 10. He denies any fever denies any diarrhea has had a history of a cholecystectomy and an appendectomy. Associated Symptoms: Reports nausea and vomiting; Denies chills, diarrhea, dysuria and fever(s) Related Data Home Medications Medication Instructions Recorded Confirmed acetaminophen 500 mg tablet 500 mg PO Q6H PRN Pain 08/12/22 06/08/24 (Tylenol Extra Strength) ibuprofen 200 mg tablet 200 mg PO Q6H PRN Pain 08/12/22 06/08/24 lovastatin 20 mg tablet 20 mg PO DAILY 06/08/24 06/08/24 simethicone 80 mg chewable tablet 80 mg PO DAILY indegestion 06/08/24 06/08/24 Previous Rx's Medication Instructions Recorded Cam boot to the left #1 ea 12/25/22 Bone stimulator #1 ea 05/21/23 meloxicam 15 mg tablet 15 mg PO DAILY #30 tabs 04/01/24 acyclovir 400 mg tablet 400 mg PO TID PRN cold sore #30 04/25/24 tabs amlodipine 5 mg tablet 5 mg PO DAILY #90 tabs 04/25/24 oxybutynin chloride 10 mg 10 mg PO DAILY #90 tabs 04/25/24 tablet,extended release 24 hr Allergies Allergy/AdvReac Type Severity Reaction Status Date / Time nortriptyline Allergy Intermediate dysphagia Verified 11/20/23 08:05 lisinopril Allergy Mild ADR-Cough Verified 11/20/23 08:05 propranolol Allergy ALGY-Difficulty Verified 11/20/23 08:05 Swallowing Review of Systems 2 Const: Denies: fever(s), chills, body aches or change in appetite ENMT: Denies: throat pain or dental pain Card: Denies: chest pain Resp: Denies: dyspnea GI: Reports: abdominal pain, nausea and vomiting; Denies: diarrhea : Denies: dysuria Musc: Denies: neck pain or back pain Skin/Breast: Denies: rash Neuro: Denies: headache(s) PFSH ED 2 PFSH: Medical History GERD (gastroesophageal reflux disease) Hx of malignant neoplasm of prostate Hyperlipidemia Hypertension Surgical History Hx of cataract surgery History of shoulder surgery Hx of cholecystectomy Hx of knee surgery History of back surgery History of prostatectomy 2010 for prostate cancer Social History Smoking and tobacco/nicotine status: unknown if used tobacco/nicotine Second hand smoke exposure: Yes Alcohol intake: current Alcohol intake frequency: holidays/special occasions only Alcohol type: beer Substance/Drug Use: never Physical Exam 2 Const: COMMON NORMALS: no acute distress, patient oriented x3 and healthy appearing HENMT: COMMON NORMALS: normocephalic and atraumatic HEAD & SCALP: n ormocephalic and atraumatic Neck/C-Spine: COMMON NORMALS: full ROM and supple Chest: COMMONS NORMALS: normal inspection of the chest Resp: COMMON NORMALS: normal respiratory effort, No retractions, No use of accessory muscles and clear to auscultation bilaterally AUSCULTATION: clear to auscultation bilaterally Cardio: COMMON NORMALS: regular rate, regular rhythm and No murmurs present (Cardio) RATE: regular rate RHYTHM: regular rhythm GI: COMMON NORMALS: Normal to inspection, nondistended, normoactive bowel sounds present, Soft to palpation and no masses PALPATION: Yes Soft to palpation OTHER: lower abd tenderness Extremity: COMMON NORMALS: normal to inspection and full ROM Neuro: COMMON NORMALS: patient oriented x3, moves all extremities and no focal motor deficits Psych: COMMON NORMALS: mental status grossly normal, Normal thought process present and cooperative THOUGHT PROCESS: Normal thought process present Skin: COMMON NORMALS: no rashes or lesions noted and no wounds GENERAL SKIN EXAM: no rashes or lesions noted Course 2 Vital Signs: Vital signs: Vital Signs Temperature 97.4 F L 06/08/24 07:40 Pulse Rate 60 06/08/24 07:40 Respiratory Rate 18 06/08/24 08:45 Blood Pressure 114/84 06/08/24 09:50 Pulse Oximetry 94 06/08/24 09:50 Oxygen Delivery Me thod Room Air 06/08/24 07:40 MDM - Abdominal Pain Medical Decision Making Patient presents for small bowel obstruction with concerns of ischemia on CT scan I spoke to surgeon Dr. Murry who came and saw the patient is going to take him to the OR at this time for an ex lap did give him IV antibiotics. Medical Records I reviewed the patient's medical records. Lab Data I reviewed the patient's lab results. 06/08/24 08:02 06/08/24 08:02 Labs/Radiology: Radiology Impressions Abdomen/Pelvis CT 06/08/24 07:43 IMPRESSION: 1. High-grade small bowel obstruction with a transition point in the RIGHT lower quadrant. Ischemic changes in the distal small bowel loops at the site of the obstruction with extensive mesenteric edema. No free air is identified at this time but patient is at risk for perforation. 2. Small amount of free fluid in the pelvis. 3. Mild dependent changes at the LEFT lung base may be developing pneumonia or pneumonitis. 4. Prior cholecystectomy. 5. Atherosclerosis aorta and iliac arteries. Notified Jhony Delarosa MD at 06/08/2024 10:09 AM. Laboratory Results WBC 10.39 10^3/uL (3.29-11.43) 06/08/24 08:02 RBC 6.03 10^6/uL (3.85-5.65) H 06/08/24 08:02 Hgb 18.20 g/dL (11.27-16.99) H 06/08/24 08:02 Hct 52.2 % (37-53) 06/08/24 08:02 MCV 86.6 fl (82-101) 06/08/24 08:02 MCH 30.2 pg (27-33) 06/08/24 08:02 MCHC 34.9 g/dL (30-55) 06/08/24 08:02 RDW 14.7 % (12.1-15.1) 06/08/24 08:02 Plt Count 186 10^3/cmm (157-399) 06/08/24 08:02 MPV 9.6 fL (7.4-10.4) 06/08/24 08:02 Neut % (Auto) 86.6 % 06/08/24 08:02 Lymph % (Auto) 8.3 % 06/08/24 08:02 [place] % (Auto) 4.4 % 06/08/24 08:02 Eos % (Auto) 0.1 % 06/08/24 08:02 Baso % (Auto) 0.3 % 06/08/24 08:02 Neut # (Auto) 9.00 10^3/uL (1.8-7.7) H 06/08/24 08:02 Lymph # (Auto) 0.9 10^3/uL (0.8-4.8) 06/08/24 08:02 [place] # (Auto) 0.5 10^3/uL (0.2-0.9) 06/08/24 08:02 Eos # (Auto) 0.0 10^3/uL (0.0-0.8) 06/08/24 08:02 Baso # (Auto) 0.0 10^3/uL (0.0-0.1) 06/08/24 08:02 Nucleated RBC % (auto) 0 % 06/08/24 08:02 Nucleated RBCs # 0.0 /100WBC 06/08/24 08:02 Sodium 140 mmol/L (136-145) 06/08/24 08:02 Potassium 4.2 mmol/L (3.5-5.1) 06/08/24 08:02 Chloride 105 mmol/L (98-107) 06/08/24 08:02 Carbon Dioxide 24 mmol/L (22-29) 06/08/24 08:02 Anion Gap 15.2 (5-19) 06/08/24 08:02 BUN 36 mg/dL (8-23) H 06/08/24 08:02 Creatinine 1.2 mg/dL (0.7-1.2) 06/08/24 08:02 GFR Calculation Not Reportable 06/08/24 08:02 Glucose 176 mg/dL (65-115) H 06/08/24 08:02 Calculated Osmolality 303 mOsm/kg (285-295) H 06/08/24 08:02 Lactic Acid 2.2 mmol/L (0.5-2.2) 06/08/24 08:02 Calcium 9.1 mg/dL (8.5-10.5) 06/08/24 08:02 Total Bilirubin 1.2 mg/dL (0.15-1.2) 06/08/24 08:02 AST 21 U/L (0-40) 06/08/24 08:02 ALT 20 U/L (0-41) 06/08/24 08:02 Alkaline Phosphatase 88 U/L (40-130) 06/08/24 08:02 Total Protein 6.7 g/dL (6.6-8.7) 06/08/24 08:02 Albumin 4.4 g/dL (3.5-5.2) 06/08/24 08:02 Globulin 2.3 g/dL (1.3-4.6) 06/08/24 08:02 Lipase 23 U/L (13-60) 06/08/24 08:02 Urine Color Yellow (Yellow) 06/08/24 09:33 Urine Appearance Clear (CLEAR) 06/08/24 09:33 Urine pH 8.0 (5-7) A 06/08/24 09:33 Ur Specific [place] 1.025 (1.005-1.030) 06/08/24 09:33 Urine Protein 1+ (Negative) A 06/08/24 09:33 Urine Glucose (UA) Trace (Normal) H 06/08/24 09:33 Urine Ketones 2+ (Negative) H 06/08/24 09:33 Urine Blood Negative (Negative) 06/08/24 09: Urine Nitrate Negative (Negative) 06/08/24 09:33 Urine Bilirubin Negative (Negative) 06/08/24 09:33 Urine Urobilinogen 1.0 mg/dL (Negative) 06/08/24 09:33 Ur Leukocyte Esterase Negative (Negative) 06/08/24 09:33 Urine RBC None /hpf (0-2) 06/08/24 09:33 Urine WBC None /hpf (0-5) 06/08/24 09:33 Ur Squamous Epith Cells None /hpf (0-5) 06/08/24 09: Amorphous Sediment Not Reportable 06/08/24 09:33 Urine Bacteria None /hpf (NONE) 06/08/24 09:33 Hyaline Casts 5-10 /lpf H 06/08/24 09:33 Urine Mucus 1+ /hpf 06/08/24 09:33 All radiology interpretation(s) finalized by discharge Discharge Plan Discharge Patient Disposition: Admitted As Inpatient Clinical Impression: Small bowel obstruction Condition: Stable Prescriptions: No Action (DME) Cam boot to the left See Rx Instructions .Route .MEDSUPPLY Qty: 1 0RF Rx Instructions: As directed (DME) Bone stimulator See Rx Instructions .Route .MEDSUPPLY Qty: 1 0RF Rx Instructions: As directed amlodipine 5 mg tablet 5 mg PO DAILY Qty: 90 11RF oxybutynin chloride 10 mg tablet extended release 24hr 10 mg PO DAILY Qty: 90 11RF acyclovir 400 mg tablet 400 mg PO TID PRN (Reason: cold sore) Qty: 30 5RF ibuprofen 200 mg tablet 200 mg PO Q6H PRN (Reason: Pain) acetaminophen [Tylenol Extra Strength] 500 mg tablet 500 mg PO Q6H MDD ] PRN (Reason: Pain) meloxicam 15 mg tablet 15 mg PO DAILY Qty: 30 11RF Rx Instructions: take with food lovastatin 20 mg tablet 20 mg PO DAILY simethicone [Gas-X] 80 mg Tablet,Chewable 80 mg PO DAILY Referrals: Roger Nassar MD [Primary Care Provider] - Coding Level of Care Code ED Ammonia Solution Preparer for Ventura Hinds
[2024-06-08] MEDS: sodium chloride 0.9% 1,000 ML 999 ML IV (08:13)
[2024-06-08] MEDS: morphine 4 mg/mL SDV 1 mL IVP (08:14)
[2024-06-08] MEDS: ondansetron 2 mg/ML SDV 2 mL 4 MG IVP (08:15)
[2024-06-08 08:17] LABS: Basophils % 0.3 %; Eosinophils % 0.1 %; Hematocrit 52.2 % (37-53); Lymphocytes # 0.9 10^3/uL (0.8-4.8); Lymphocytes % 8.3 %; Mean Corpuscular HGB Conc 34.9 g/dL (30-55); Mean Corpuscular Hemoglobin 30.2 pg (27-33); Mean Corpuscular Volume 86.6 fl (82-101); Mean Platelet Volume 9.6 fL (7.4-10.4); Monocytes # 0.5 10^3/uL (0.2-0.9); Monocytes % 4.4 %; Neutrophils % 86.6 %; Nucleated Red Blood Cells % 0 %; Platelet Count 186 10^3/cmm (157-399); Red Blood Count 6.03 10^6/uL (3.85-5.65); Red Cell Distribution Width 14.7 % (12.1-15.1); White Blood Count 10.39 10^3/uL (3.29-11.43)
[2024-06-08 08:33] LABS: Alanine Aminotransferase 20 U/L (0-41); Albumin Level 4.4 g/dL (3.5-5.2); Alkaline Phosphatase 88 U/L (40-130); Aspartate Amino Transferase 21 U/L (0-40); Blood Urea Nitrogen 36 mg/dL (8-23); Calcium 9.1 mg/dL (8.5-10.5); Carbon Dioxide 24 mmol/L (22-29); Chloride 105 mmol/L (98-107); Globulin 2.3 g/dL (1.3-4.6); Glucose 176 mg/dL (65-115); Lipase 23 U/L (13-60); Osmolality Calculated 303 mOsm/kg (285-295); Sodium 140 mmol/L (136-145); Total Bilirubin 1.2 mg/dL (0.15-1.2); Total Protein 6.7 g/dL (6.6-8.7)
[2024-06-08] MEDS: HYDROmorphone 1 mg/mL INJ 1 mL IVP (08:45)
[2024-06-08 09:00] LABS: Anion Gap 15.2 (5-19); Potassium 4.2 mmol/L (3.5-5.1)
[2024-06-08] MEDS: iohexol 350 mg/mL 500 mL Btl (per mL) IV (09:22)
[2024-06-08 10:00] LABS: Bilirubin Urine Negative (Negative); Blood Urine Negative (Negative); Glucose Urine UA Trace (Normal); Ketones Urine 2+ (Negative); Leukocyte Esterase Urine Negative (Negative); Nitrate Urine Negative (Negative); Protein Urine 1+ (Negative); Specific Gravity, Urine 1.025 (1.005-1.030); Urine Appearance Clear (CLEAR); Urine Color Yellow (Yellow)
[2024-06-08 10:40] LABS: Lactic Sepsis W/Reflex 2.2 mmol/L (0.5-2.2)
[2024-06-08 10:42] LABS: Add Urine Microscopic? YES; UA Manual Slide Review YES; UA Slide Review UA Slide Review Perf
[2024-06-08 10:44] LABS: Reflex Lactate Order REFLEX LACTIC ORDERD
[2024-06-08 10:50] LABS: Add Urine Culture? No; Mucus Urine 1+ /hpf
[2024-06-08] MEDS: piperacillin-tazobactam 3.375 GM in sodium chloride 0.9% (plus) 50 ML IV ×2 (10:50→18:25)
--- NOTE | 2024-06-08 11:10 | P.ANESASSM_ITS ---
Pre-Anesthetic Assessment Height/Weight: Height 5 ft 9 in Weight 170 lb Temp Pulse Resp BP Pulse Ox O2 Del Method 97.4 F L 96 18 125/87 73 L Room Air 06/08/24 07:40 06/08/24 11:01 06/08/24 08:45 06/08/24 11:01 06/08/24 11:01 06/08/24 07:40 Preop Diagnosis: Exploratory laparotomy-concern for bowel ischemia Operation Date: 06/08/24 15:15 Proposed Procedures p Exploratory Laparotomy(Not Applicable) - Ian Murry MD s Possible Small Bowel Resection(Not Applicable) - Ian Murry MD Was Beta [place] taken within 24 hours: N/A Was Clonidine taken within 24 hours: N/A Social No alcohol and No tobacco Exam alert, oriented x 3, clear to auscultation bilaterally and regular rate & rhythm Airway Submandibular: within normal limits Cervical ROM: within normal limits Mallampati: Class II Dentition: full Anesthetic Plan ASA status: 4E Anesthesia: General Other: No prior issues with anesthesia NPO since yesterday but currently having nausea/vomiting secondary to abdominal pain and bowel obstruction History of GERD Hypertension on amlodipine labs reviewed 06/08/2024 Hemoglobin 18.2 Prior EKG showing sinus bradycardia METS greater than 4 Plan for GETA with RSI. Patient advised he may wake up with extra lines including arterial line and/or central line Vitals currently stable Medications/Allergies Home Medications Medication Instructions Recorded Confirmed Last Taken Type acetaminophen 500 mg tablet 500 mg PO Q6H PRN Pain 08/12/22 06/08/24 04/07/23 History (Tylenol Extra Strength) ibuprofen 200 mg tablet 200 mg PO Q6H PRN Pain 08/12/22 06/08/24 04/09/23 History Cam boot to the left #1 ea 12/25/22 06/08/24 Unknown Rx Bone stimulator #1 ea 05/21/23 06/08/24 Unknown Rx meloxicam 15 mg tablet 15 mg PO DAILY #30 tabs 04/01/24 06/08/24 06/07/24 Rx acyclovir 400 mg tablet 400 mg PO TID PRN cold sore #30 04/25/24 06/08/24 Unknown Rx tabs amlodipine 5 mg tablet 5 mg PO DAILY #90 tabs 04/25/24 06/08/24 06/07/24 Rx oxybutynin chloride 10 mg 10 mg PO DAILY #90 tabs 04/25/24 06/08/24 Unknown Rx tablet,extended release 24 hr lovastatin 20 mg tablet 20 mg PO DAILY 06/08/24 06/08/24 06/07/24 History simethicone 80 mg chewable tablet 80 mg PO DAILY indegestion 06/08/24 06/08/24 06/08/24 History Allergies Allergy/AdvReac Type Severity Reaction Status Date / Time nortriptyline Allergy Intermediate dysphagia Verified 11/20/23 08:05 lisinopril Allergy Mild ADR-Cough Verified 11/20/23 08:05 propranolol Allergy ALGY-Difficulty Verified 11/20/23 08:05 Swallowing PFSH Anesthesia Medical History GERD (gastroesophageal reflux disease) Hx of malignant neoplasm of prostate Hyperlipidemia Hypertension Surgical History Hx of cataract surgery History of shoulder surgery Hx of cholecystectomy Hx of knee surgery History of back surgery History of prostatectomy 2010 for prostate cancer Social History Smoking and tobacco/nicotine status: unknown if used tobacco/nicotine Second hand smoke exposure: Yes Alcohol intake: current Alcohol intake frequency: holidays/special occasions only Alcohol type: beer Substance/Drug Use: never Data Anesthesia 06/08/24 08:02 06/08/24 08:02 Short CBC 06/08/24 Range/Units 08:02 WBC 10.39 (3.29-11.43) 10^3/uL Hgb 18.20 H (11.27-16.99) g/dL Hct 52.2 (37-53) % MCV 86.6 (82-101) fl Plt Count 186 (157-399) 10^3/cmm Neut % (Auto) 86.6 % Neut # (Auto) 9.00 H (1.8-7.7) 10^3/uL BMP 06/08/24 08:02 Sodium 140 Potassium 4.2 Chloride 105 Carbon Dioxide 24 BUN 36 H Creatinine 1.2 Glucose 176 H Calcium 9.1 Liver Function 06/08/24 Range/Units 08:02 Total Bilirubin 1.2 (0.15-1.2) mg/dL AST 21 (0-40) U/L ALT 20 (0-41) U/L Alkaline Phosphatase 88 (40-130) U/L Albumin 4.4 (3.5-5.2) g/dL Urine 06/08/24 Range/Units 09:33 Urine Color Yellow (Yellow) Urine Appearance Clear (CLEAR) Urine pH 8.0 A (5-7) Ur Specific [place] 1.025 (1.005-1.030) Urine Protein 1+ A (Negative) Urine Glucose (UA) Trace H (Normal) Urine Ketones 2+ H (Negative) Urine Nitrate Negative (Negative) Urine Bilirubin Negative (Negative) Ur Leukocyte Esterase Negative (Negative) Urine RBC None (0-2) /hpf Urine WBC None (0-5) /hpf Cardiac Studies: 2 No Data to Display
[2024-06-08] MEDS: ondansetron 2 mg/ML SDV 2 mL 4 MG (11:14)
--- NOTE | 2024-06-08 11:26 | P.CONIM_ITS ---
Providers/Reason For Consult 2 Consulting Physician/Specialty*: Dr. Murry general surgery Reason for Consult*: SBO Primary Care Provider: Roger Nassar MD History of Present Illness History of Present Illness Cb Mcintyre is a 78 year old male s/p appendectomy and cholecystectomy who presents with SBO with threatened bowel. Pain started a few hours ago. + Nausea, vomiting. Abdomen diffusely TTP. Medications/Allergies Home Medications Medication Instructions Recorded Confirmed Last Taken Type acetaminophen 500 mg tablet 500 mg PO Q6H PRN Pain 08/12/22 06/08/24 04/07/23 History (Tylenol Extra Strength) ibuprofen 200 mg tablet 200 mg PO Q6H PRN Pain 08/12/22 06/08/24 04/09/23 History Cam boot to the left #1 ea 12/25/22 06/08/24 Unknown Rx Bone stimulator #1 ea 05/21/23 06/08/24 Unknown Rx meloxicam 15 mg tablet 15 mg PO DAILY #30 tabs 04/01/24 06/08/24 06/07/24 Rx acyclovir 400 mg tablet 400 mg PO TID PRN cold sore #30 04/25/24 06/08/24 Unknown Rx tabs amlodipine 5 mg tablet 5 mg PO DAILY #90 tabs 04/25/24 06/08/24 06/07/24 Rx oxybutynin chloride 10 mg 10 mg PO DAILY #90 tabs 04/25/24 06/08/24 Unknown Rx tablet,extended release 24 hr lovastatin 20 mg tablet 20 mg PO DAILY 06/08/24 06/08/24 06/07/24 History simethicone 80 mg chewable tablet 80 mg PO DAILY indegestion 06/08/24 06/08/24 06/08/24 History Allergies Allergy/AdvReac Type Severity Reaction Status Date / Time nortriptyline Allergy Intermediate dysphagia Verified 11/20/23 08:05 lisinopril Allergy Mild ADR-Cough Verified 11/20/23 08:05 propranolol Allergy ALGY-Difficulty Verified 11/20/23 08:05 Swallowing PFSH Acute 2 PFSH: Medical History GERD (gastroesophageal reflux disease) Hx of malignant neoplasm of prostate Hyperlipidemia Hypertension Surgical History Hx of cataract surgery History of shoulder surgery Hx of cholecystectomy Hx of knee surgery History of back surgery History of prostatectomy 2010 for prostate cancer Social History Smoking and tobacco/nicotine status: unknown if used tobacco/nicotine Second hand smoke exposure: Yes Alcohol intake: current Alcohol intake frequency: holidays/special occasions only Alcohol type: beer Substance/Drug Use: never Vitals/I&O/Wt Last Vital Signs Temp 97.4 F L 06/08/24 07:40 Pulse 96 06/08/24 11:01 Resp 18 06/08/24 08:45 BP 125/87 06/08/24 11:01 Pulse Ox 73 L 06/08/24 11:01 O2 Del Method Room Air 06/08/24 07:40 Weight last 48 hrs Weight 170 lb Physical Exam 2 Narrative: Chest: Unlabored breathing room air. No lymphadenopathy. Heart: Regular rate and rhythm. Abdomen: Soft, tender diffusely, distended. No masses or lymphadenopathy. Data 06/08/24 08:02 06/08/24 08:02 A&P Assessment and plan (1) Small bowel obstruction: Plan 78-year-old male status post appendectomy and cholecystectomy who presents with a small bowel obstruction with threatened bowel. CT scan concerning. Will proceed to the operating room for exploration and possible bowel resection. Patient consented, discussed risks and benefits and patient agrees to proceed. Daughter at bedside. Coding Level of Care Code Acute Code for Chg Fwd Diagnoses Small bowel obstruction K56.609 Time Spent (min) 30
--- NOTE | 2024-06-08 12:04 | P.CONIM_ITS ---
Providers/Reason For Consult 2 Consulting Physician/Specialty*: Peiro Molina MD Reason for Consult*: Medical management Requesting Physician: Dr. Murry Primary Care Provider: Roger Nassar MD History of Present Illness History of Present Illness Cb Mcintyre is a 78 year old male presenting with nausea vomiting, lower abdominal pain this morning. My history was very brief, as he was going directly to surgery. From the ER notes, there has not been any diarrhea. Previous abdominal surgeries were cholecystectomy and an appendectomy. 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 He is not on current anticoagulation. He denies any history of stroke, or heart attack. In the emergency department, a CT scan was performed which demonstrated small bowel obstruction, with transition side and concern of ischemic bowel. Surgery was notified, who is admitting the patient and taking him directly to surgery. Review of Systems 2 General: Reports: 10 or more systems reviewed and unremarkable except in HPI and below Medications/Allergies Home Medications Medication Instructions Recorded Confirmed Last Taken Type acetaminophen 500 mg tablet 500 mg PO Q6H PRN Pain 08/12/22 06/08/24 04/07/23 History (Tylenol Extra Strength) ibuprofen 200 mg tablet 200 mg PO Q6H PRN Pain 08/12/22 06/08/24 04/09/23 History Cam boot to the left #1 ea 12/25/22 06/08/24 Unknown Rx Bone stimulator #1 ea 05/21/23 06/08/24 Unknown Rx meloxicam 15 mg tablet 15 mg PO DAILY #30 tabs 04/01/24 06/08/24 06/07/24 Rx acyclovir 400 mg tablet 400 mg PO TID PRN cold sore #30 04/25/24 06/08/24 Unknown Rx tabs amlodipine 5 mg tablet 5 mg PO DAILY #90 tabs 04/25/24 06/08/24 06/07/24 Rx oxybutynin chloride 10 mg 10 mg PO DAILY #90 tabs 04/25/24 06/08/24 Unknown Rx tablet,extended release 24 hr lovastatin 20 mg tablet 20 mg PO DAILY 06/08/24 06/08/24 06/07/24 History simethicone 80 mg chewable tablet 80 mg PO DAILY indegestion 06/08/24 06/08/24 06/08/24 History Allergies Allergy/AdvReac Type Severity Reaction Status Date / Time nortriptyline Allergy Intermediate dysphagia Verified 11/20/23 08:05 lisinopril Allergy Mild ADR-Cough Verified 11/20/23 08:05 propranolol Allergy ALGY-Difficulty Verified 11/20/23 08:05 Swallowing PFSH Acute 2 PFSH: Medical History GERD (gastroesophageal reflux disease) Hx of malignant neoplasm of prostate Hyperlipidemia Hypertension Surgical History Hx of cataract surgery History of shoulder surgery Hx of cholecystectomy Hx of knee surgery History of back surgery History of prostatectomy 2009 for prostate cancer Family History (Updated 06/08/24 @ 12:07 by Piero Molina MD) Other Cancer Social History Smoking and tobacco/nicotine status: unknown if used tobacco/nicotine Second hand smoke exposure: Yes Alcohol intake: current Alcohol intake frequency: holidays/special occasions only Alcohol type: beer Substance/Drug Use: never Vitals/I&O/Wt Last Vital Signs Temp 97.4 F L 06/08/24 07:40 Pulse 96 06/08/24 11:01 Resp 18 06/08/24 08:45 BP 125/87 06/08/24 11:01 Pulse Ox 73 L 06/08/24 11:01 O2 Del Method Room Air 06/08/24 07:40 Weight last 48 hrs Weight 77.111 kg Physical Exam 2 Narrative: General exam demonstrates a conversant white male, readying himself for surgery. HEENT: Atraumatic Neck is supple Cardiovascular regular rate and rhythm, no murmur Lungs clear Abdomen distended, tympanic, some generalized tenderness exam deferred Extremities no cyanosis clubbing edema, cap refill brisk Skin no rash Neuro no obvious focal deficits Data 06/08/24 08:02 06/08/24 08:02 Other Labs: LFTs are normal Initial lactic acid 2.2 Urinalysis 2+ ketones but otherwise essentially negative Abdomen/pelvis CT with high-grade bowel obstruction right lower quadrant transition site and concern of ischemic bowel. Possible left lung base atelectasis versus pneumonia. Back hardware noted. I reviewed this as well Lipase is normal A&P Assessment and plan (1) Small bowel obstruction: Patient presents with small bowel obstruction, with concern of ischemic bowel Surgery has taken him urgently for exploratory laparotomy Zosyn was given in the emergency department. Should be continued secondary to concern of ischemic bowel as well as possibility of pneumonia, although this appears more like atelectasis on his CT Close follow-up after surgery, to ensure antibiotics continue. Pain control Hydration Incentive spirometry following surgery (2) Hypertension: Hold antihypertensives Monitor blood pressure closely, and restart when appropriate Plan History of prostate cancer DJD Hyperlipidemia Thank you for this consultation, we will continue to follow along with you. Consult Attestations 2 Medical Necessity Statement: As per primary Diagnoses Small bowel obstruction K56.609 Hypertension I10 Time Spent (min) 54
[2024-06-08 12:25] LABS: Lactic Acid level (Lactate) 1.8 mmol/L (0.5-2.2)
--- NOTE | 2024-06-08 13:14 | W.PM.BPON ---
Date of Procedure: 06/08/24 Surgeon: Ian Murry MD Assistant Loan Processor(s): None Procedure(s) performed: Exploratory laparotomy, lysis of adhesions, 20cm distal ileum resection and small bowel anastomosis. Findings of the procedure(s): 20cm of necrotic distal ileum. Small bowel anastomosis performed using 45cm [place] blue load. Enterotomy closed in two layers using 3-0 vicryl and 3-0 silk. Estimated blood loss: 30cc Specimen(s) removed: 20cm necrotic distal ileum Post-operative diagnosis: closed loop small bowel obstruction
--- NOTE | 2024-06-08 13:16 | SUR.OPER ---
abd block, 60 of 0.2% rop given
--- NOTE | 2024-06-08 13:30 | ANES.PROC ---
Anesthesia Procedures Procedure/Date: 06/08/24 Nerve Block ^: Nerve Block 1: Main Anesthesia: general anesthesia Time Out Performed: Yes Consent: requested by attending/covering physician and from patient Nerve block location: other (bilateral rectus sheath blocks) Anesthesia monitors applied: pulse oximetry, EKG, BP cuff and oxygen Nerve block position: supine Anesthetic Used: other (ropivicaine 0.2%) Amount of anesthesia used (mL): 60 Ultrasound used to: recognize landmarks Interscalene/Femoral BLK: 4 stimuplex 21 g needle used for position and inplane approach and visualize local anesthetic spread Injection: neg aspiration of heme Patient Tolerated Procedure: well Complications: none
--- NOTE | 2024-06-08 14:09 | ANE.PACU2 ---
Inpatient post-anesthesia follow up: Airway intact: Yes Vital signs: Temperature 97.8 F Pulse Rate 65 Respiratory Rate 16 Blood Pressure 160/73 Pulse Oximetry 91 Oxygen Delivery Me thod Room Air Oxygen Flow Rate 6 Fraction of Inspir ed Oxygen Hydration adequate: Yes Nausea and vomiting: No Pain level: 1 Mental status: Baseline
[2024-06-08] MEDS: lanolin oint 7 gm 1 APPLIC TOPICAL (15:37)
[2024-06-08] MEDS: sodium chloride 0.9% 1,000 ML 75 ML IV (15:37)
--- NOTE | 2024-06-08 16:19 | W.PM.BPONFUL ---
Date of Procedure: 06/08/24 Surgeon: Ian Murry MD Christmas Bell Ringer(s): None Procedure(s) performed: Exploratory laparotomy, lysis of adhesions, 20cm distal ileum resection and small bowel anastomosis. Findings of the procedure(s): 20cm of necrotic distal ileum. Small bowel anastomosis performed using 45cm [place] blue load. Enterotomy closed in two layers using 3-0 vicryl and 3-0 silk. Estimated blood loss: 30cc Specimen(s) removed: 20cm necrotic distal ileum Post-operative diagnosis: closed loop small bowel obstruction Date of Procedure: 06/08/24 Surgeon: Ian Murry MD Christmas Bell Ringer(s): None Procedure(s) performed: Exploratory laparotomy, lysis of adhesions, 20cm distal ileum resection and small bowel anastomosis. Findings of the procedure(s): 20cm of necrotic distal ileum. Small bowel anastomosis performed using 45cm [place] blue load. Enterotomy closed in two layers using 3-0 vicryl and 3-0 silk. Estimated blood loss: 30cc Specimen(s) removed: 20cm necrotic distal ileum Post-operative diagnosis: closed loop small bowel obstruction Brief history/preop diagnosis: 78-year-old male who presented with a closed-loop SBO. Patient was consented for an expiratory laparotomy and possible bowel resection, possible ostomy. After discussing risks and benefits patient agreed to proceed with surgery. Daughter at bedside and agreed with the plan. Full operative report: After discussing the risks and benefits and consenting the patient he was brought into the operating room. An NG tube was placed and 500 cc of gastric contents were suctioned out. Preoperative Zosyn was administered. SCDs were functional. General anesthesia was induced. The abdomen was prepped and draped in the usual sterile fashion. A midline laparotomy was carried out. Lysis of adhesions was carried out in the right lower quadrant using sharp dissection. The small bowel was then eviscerated and 20 cm of necrotic distal ileum were encountered. The small bowel was run in its entirety from ligament of Treitz to the cecum. Rest of the small bowel was viable. NG tube placement was confirmed by palpating the stomach directly. The necrotic portion of distal ileum was then resected. I used the [place] flex with 45 mm blue staple loads to resect the proximal and distal aspect of the necrotic bowel. I then used a LigaSure impact to transect the mesentery of the compromised bowel. Necrotic bowel was sent as a pathology specimen. I then proceeded to perform a small bowel anastomosis by using a 45 mm blue staple load with the [employer] flex stapler. I confirmed the patency of the anastomosis. The enterotomy was closed in 2 layers using 3-0 Vicryl and 3-0 silk. I ran the bowel 1 last time and confirmed its integrity and viability. The colon also looked viable in its entirety. I did not see any other abnormalities in the abdomen. I proceeded to then close the midline using x2 0 looped PDS. Wound was irrigated copiously. Skin was closed using kimberlyn. Patient woke up from anesthesia without any complications. He was transferred to PACU and then to the floor. Condition: Stable Disposition: Floor
[2024-06-08] MEDS: phenol oral Spray 177 mL 3 SPRAY MUCOUS MEM (19:00)
[2024-06-08] MEDS: morphine 4 mg/mL SDV 1 mL 2 MG IVP ×2 (19:57→22:42)
--- NOTE | 2024-06-08 20:45 | PC.NURSE ---
NG tube hooked up to low intermittent suction per physician orders.
[2024-06-09] VITALS (14 sets, daily range): BP systolic 143–159; BP diastolic 68–74; PULSE 64–78; RESP 15–20; TEMP 36.7–37.4; O2SAT 90–96
[2024-06-09] MEDS: piperacillin-tazobactam 3.375 GM in sodium chloride 0.9% (plus) 50 ML IV (02:34)
[2024-06-09] MEDS: morphine 4 mg/mL SDV 1 mL 2 MG IVP ×7 (02:40→22:58)
[2024-06-09] MEDS: sodium chloride 0.9% 1,000 ML 75 ML IV (04:41)
[2024-06-09 05:31] LABS: Basophils % 0.1 %; Lymphocytes # 0.9 10^3/uL (0.8-4.8); Lymphocytes % 6.7 %; Mean Corpuscular HGB Conc 34.1 g/dL (30-55); Mean Corpuscular Hemoglobin 30.5 pg (27-33); Mean Corpuscular Volume 89.3 fl (82-101); Mean Platelet Volume 10.4 fL (7.4-10.4); Monocytes # 0.9 10^3/uL (0.2-0.9); Neutrophils # 11.16 10^3/uL (1.8-7.7); Neutrophils % 85.8 %; Nucleated Red Blood Cells % 0 %; Platelet Count 162 10^3/cmm (157-399); Red Blood Count 5.15 10^6/uL (3.85-5.65); Red Cell Distribution Width 15.6 % (12.1-15.1)
[2024-06-09 05:56] LABS: Alanine Aminotransferase 40 U/L (0-41); Albumin Level 3.4 g/dL (3.5-5.2); Alkaline Phosphatase 58 U/L (40-130); Anion Gap 13.1 (5-19); Aspartate Amino Transferase 29 U/L (0-40); Blood Urea Nitrogen 28 mg/dL (8-23); Carbon Dioxide 27 mmol/L (22-29); Chloride 107 mmol/L (98-107); Creatinine Clr Calc Pharmacy 56.4118; Glucose 131 mg/dL (65-115); Magnesium 1.9 mg/dL (1.7-2.3); Osmolality Calculated 303 mOsm/kg (285-295); Potassium 4.1 mmol/L (3.5-5.1); Sodium 143 mmol/L (136-145); Total Bilirubin 1.4 mg/dL (0.15-1.2); Total Protein 5.4 g/dL (6.6-8.7)
--- NOTE | 2024-06-09 08:05 | P.PN_ITS ---
Documented by User: BIJU Thacker STDPINO 06/09/24 10:01 Subjective 2 Subjective: Patient is post-op day #1 secondary to SBO with distal ileum resection and anastomosis. Patient is sore today along incision site,but is otherwise doing well. Patient had brambila removed and has been able to urinate on own. Patient has not had flatulence or bowel movements yet. Patient has not became mobile yet, but will likely get up today. Patient denies chest pain, SOB, headache, fever, numbness or tingling in legs. Vitals/I&O/Wt Last Vital Signs Temp 98.6 F 06/09/24 04:00 Pulse 71 06/09/24 04:00 Resp 16 06/09/24 07:02 BP 146/74 06/09/24 04:00 Pulse Ox 96 06/09/24 04:00 O2 Del Method Room Air 06/09/24 04:00 O2 Flow Rate 1 06/08/24 20:02 06/08/24 06/09/24 06/09/24 22:59 06:59 14:59 Intake Total 50 / 1100 980 / 2080 50 / 50 Output Total 500 / 775 150 / 925 Balance -450 / 325 830 / 1155 50 / 50 Weight last 48 hrs Weight 192 lb 9.6 oz Weight 170 lb Weight 170 lb Physical Exam 2 Resp: OTHER: Bilateral breath sounds, clear to auscultation Cardio: OTHER: Normal rate and rhythm without murmurs, gallops, or rubs GI: OTHER: Midline incision covered by dressing. Soft, nondistended, tender around incision sight, with some bowel sounds. Extremity: OTHER: No edema or cyanosis Urinary Catheter Management: Brambila: Cath Placed During This Visit: yes, but has since been removed by the nurse Reason for Continuing Indwelling Catheter: Decision to DC Catheter Urinary Catheter Date of Insertion: 06/08/24 Urinary Catheter Time of Insertion: 12:04 Date Urinary Catheter Removed: 06/08/24 Time Urinary Catheter Discontinued: 23:36 Data 06/09/24 04:52 06/09/24 04:52 A&P Assessment and plan (1) Small bowel obstruction: Status Post-op day #1 of distal ileum resection with anastomosis Currently has NG tube on suction Continue Zosyn Pain management with Morphine q2hrs Hydrate with IVF NS 100ml/hrs Incentive spirometer was ordered continue zofran for nausea Continue IV Protonix Patient had slightly elevated WBCs at 13K, will continue to monitor levels Start Lovenox for DVT PPX secondary to history of PE/DVT and post-op status (2) Hypertension: Patient has a history of HTN Anti-hypertensives were held secondary to surgery Post-op BP has remained elevated, continue to monitor and evaluate the need to add antihypertensive tomorrow as patient is on BP lowering pain medication Plan Resus Status unknown Lovenox for DVT PPx Coding Level of Care Code 72478 Diagnoses Small bowel obstruction K56.609 Hypertension I10 Time Spent (min) 22 Documented by User: Piero Molina MD 06/09/24 10:35 Subjective 2 Medications: Reviewed: Yes Physical Exam 2 Urinary Catheter Management: Brambila: Cath Placed During This Visit: yes, but has since been removed by the nurse Data 06/09/24 04:52 06/09/24 04:52 A&P Assessment and plan (1) Small bowel obstruction: Status Post-op day #1 of distal ileum resection with anastomosis Currently has NG tube on suction Discussed need for Zosyn with surgery. With surgical findings, he does not believe Zosyn needs to be continued. Will discontinue. Pain management with Morphine q2hrs Hydrate with IVF NS 100ml/hrs Incentive spirometer was ordered continue zofran for nausea Continue IV Protonix Patient had slightly elevated WBCs at 13K, will continue to monitor levels Start Lovenox for DVT PPX secondary to history of PE/DVT and post-op status (2) Hypertension: Plan Resus Status full code Lovenox for DVT PPx Attestations 2 Medical Necessity Statement*: As per primary Diagnoses Small bowel obstruction K56.609 Hypertension I10 Time Spent (min) 22
[2024-06-09] MEDS: pantoprazole 40 mg SDV IVP (09:18)
[2024-06-09] MEDS: enoxaparin 40 mg/0.4 mL Syringe SUBCUT (09:23)
--- NOTE | 2024-06-09 11:31 | P.PN_ITS ---
Subjective 2 Subjective: Pain under control No gas, no bowel movement Distended NG tube about 900 cc out. Dressing clean, dry, intact Labs okay Vitals/I&O/Wt Last Vital Signs Temp 98.3 F 06/09/24 08:00 Pulse 64 06/09/24 08:00 Resp 17 06/09/24 08:00 BP 143/68 06/09/24 08:00 Pulse Ox 94 06/09/24 08:00 O2 Del Method Room Air 06/09/24 04:00 O2 Flow Rate 1 06/08/24 20:02 06/08/24 06/09/24 06/09/24 22:59 06:59 14:59 Intake Total 50 / 1100 980 / 2080 488.75 / 488.75 Output Total 500 / 775 150 / 925 Balance -450 / 325 830 / 1155 488.75 / 488.75 Weight last 48 hrs Weight 192 lb 9.6 oz Weight 170 lb Weight 170 lb Physical Exam 2 Narrative: Chest: Unlabored breathing room air. No lymphadenopathy. Heart: Regular rate and rhythm. Abdomen: Soft, appropriately tender, distended. No masses or lymphadenopathy. Dressing clean dry intact. Urinary Catheter Management: Salas: Cath Placed During This Visit: yes, but has since been removed by the nurse Reason for Continuing Indwelling Catheter: Decision to DC Catheter Urinary Catheter Date of Insertion: 06/08/24 Urinary Catheter Time of Insertion: 12:04 Date Urinary Catheter Removed: 06/08/24 Time Urinary Catheter Discontinued: 23:36 Data 06/09/24 04:52 06/09/24 04:52 A&P Assessment and plan (1) Small bowel obstruction: Plan 78-year-old male status post ex lap for closed-loop SBO. Awaiting return of bowel function. Otherwise progressing as expected. Instructed him to be out of bed is much as possible and walk. He should try to minimize time on the bed. Sitting on the chair is encouraged. Continue due to low continuous suction. Attestations 2 Medical Necessity Statement*: IV fluids, NG tube, IV pain meds Coding Level of Care Code 05289 Diagnoses Small bowel obstruction K56.609 Time Spent (min) 30
[2024-06-09] MEDS: sodium chloride 0.9% 1,000 ML 100 ML IV (15:23)
[2024-06-10] VITALS (12 sets, daily range): BP systolic 138–165; BP diastolic 74–81; PULSE 67–77; RESP 16–18; TEMP 36.5–37.4; O2SAT 90–93
[2024-06-10] MEDS: sodium chloride 0.9% 1,000 ML 100 ML IV ×3 (01:10→22:59)
[2024-06-10] MEDS: morphine 4 mg/mL SDV 1 mL 2 MG IVP (03:02)
[2024-06-10] MEDS: ondansetron 2 mg/ML SDV 2 mL 4 MG IVP ×5 (03:07→22:06)
[2024-06-10 05:35] LABS: Basophils % 0.2 %; Lymphocytes # 0.6 10^3/uL (0.8-4.8); Lymphocytes % 4.9 %; Mean Corpuscular HGB Conc 33.2 g/dL (30-55); Mean Corpuscular Hemoglobin 29.7 pg (27-33); Mean Corpuscular Volume 89.4 fl (82-101); Mean Platelet Volume 10.3 fL (7.4-10.4); Monocytes # 0.9 10^3/uL (0.2-0.9); Monocytes % 7.2 %; Neutrophils # 11.37 10^3/uL (1.8-7.7); Neutrophils % 87.3 %; Nucleated Red Blood Cells % 0 %; Platelet Count 156 10^3/cmm (157-399); Red Blood Count 5.59 10^6/uL (3.85-5.65); Red Cell Distribution Width 15.5 % (12.1-15.1); White Blood Count 13.02 10^3/uL (3.29-11.43)
[2024-06-10 05:54] LABS: Alanine Aminotransferase 27 U/L (0-41); Albumin Level 3.3 g/dL (3.5-5.2); Alkaline Phosphatase 73 U/L (40-130); Anion Gap 15.2 (5-19); Aspartate Amino Transferase 18 U/L (0-40); Blood Urea Nitrogen 22 mg/dL (8-23); Calcium 8.4 mg/dL (8.5-10.5); Carbon Dioxide 24 mmol/L (22-29); Chloride 110 mmol/L (98-107); Creatinine Clr Calc Pharmacy 67.9364; Globulin 2.5 g/dL (1.3-4.6); Glucose 142 mg/dL (65-115); Osmolality Calculated 306 mOsm/kg (285-295); Potassium 4.2 mmol/L (3.5-5.1); Sodium 145 mmol/L (136-145); Total Bilirubin 1.4 mg/dL (0.15-1.2); Total Protein 5.8 g/dL (6.6-8.7)
--- NOTE | 2024-06-10 06:10 | PC.NURSE ---
Pt reports he is now having flatus.
--- NOTE | 2024-06-10 07:57 | P.PN_ITS ---
Documented by User: BIJU Thacker STDPINO 06/10/24 08:28 Subjective 2 Subjective: Patient is status post-op day #2 of SBO resulting in distal ileum resection with anastomosis. Patient is experiencing nausea frequently, has been given Zofran. Patient states that he thought the nausea was due to the morphine and requested for it to changed, will change to Dilaudid IV. Has soreness along incision site, but has been able to sit up several times with help and pass flatulence. Patient's BP has been elevated, will restart amlodipine. Patient does have bilateral conjunctiva icterus likely secondary to elevated bilirubin levels, will monitor. Vitals/I&O/Wt Last Vital Signs Temp 97.7 F 06/10/24 07:34 Pulse 75 06/10/24 07:34 Resp 17 06/10/24 07:34 BP 163/81 06/10/24 07:34 Pulse Ox 91 06/10/24 07:34 O2 Del Method Room Air 06/10/24 07:34 O2 Flow Rate 1 06/09/24 11:30 06/09/24 06/10/24 06/10/24 22:59 06:59 14:59 Intake Total 485 / 973.75 978.333 / 1952.083 Output Total 575 / 575 375 / 950 Balance -90 / 398.75 603.333 / 1002.083 Weight last 48 hrs Weight 194 lb 2 oz Weight 192 lb 9.6 oz Weight 170 lb Physical Exam 2 Eye: CONJUNCTIVA: Yes conjunctival abnormal positive bilateral OTHER: Bilateral conjunctiva icterus Neck/C-Spine: OTHER: Supple Resp: OTHER: Bilateral breath sounds, clear to auscultation, normal chest wall expansion Cardio: OTHER: Normal rate and rhythm without murmurs, gallops, or rubs GI: OTHER: Soft, nondistended, tenderness at midline of abdomen over incision site with bowel sounds Extremity: OTHER: No edema or cyanosis Urinary Catheter Management: Salas: Cath Placed During This Visit: yes, but has since been removed by the nurse Reason for Continuing Indwelling Catheter: Decision to DC Catheter Urinary Catheter Date of Insertion: 06/08/24 Urinary Catheter Time of Insertion: 12:04 Date Urinary Catheter Removed: 06/08/24 Time Urinary Catheter Discontinued: 23:36 Data 06/10/24 04:54 06/10/24 04:54 A&P Assessment and plan (1) Small bowel obstruction: Patient is post-op day #2 Currently has NG tube on suction with output 150 overnight Patient experiencing nausea, currently using zofran to treat Stop morphine secondary to nausea, start Dilaudid IV 0.5mg q4hrs Hydrate with IVF NS 100ml/hrs Incentive spirometer was ordered Continue IV Protonix Patient WBCs are still elevated at 13K, will continue to monitor levels Start Lovenox for DVT PPX secondary to history of PE/DVT and post-op status (2) Nausea & vomiting: Patient experiencing nausea, currently using zofran to treat, but still has breakthrough Stop morphine secondary to nausea, start Dilaudid IV 0.5mg q4hrs (3) Hypertension: Patient has a history of HTN Anti-hypertensives were held secondary to surgery Post-op BP has remained elevated, start home amlopidine doseage of 5mg PO daily Plan Resus Status Full code Lovenox for DVT PPx Coding Level of Care Code 37611 Diagnoses Small bowel obstruction K56.609 Nausea & vomiting R11.2 Hypertension I10 Time Spent (min) 23 Documented by User: Piero Molina MD 06/10/24 08:29 Subjective 2 Medications: Reviewed: Yes Physical Exam 2 Urinary Catheter Management: Salas: Cath Placed During This Visit: yes, but has since been removed by the nurse Data 06/10/24 04:54 06/10/24 04:54 A&P Assessment and plan (1) Small bowel obstruction: (2) Nausea & vomiting: (3) Hypertension: Attestations 2 Medical Necessity Statement*: As per primary Diagnoses Small bowel obstruction K56.609 Nausea & vomiting R11.2 Hypertension I10 Time Spent (min) 23
[2024-06-10] MEDS: HYDROmorphone 1 mg/mL INJ 1 mL 0.5 MG IVP ×4 (08:29→22:11)
[2024-06-10] MEDS: pantoprazole 40 mg SDV IVP (08:30)
[2024-06-10] MEDS: enoxaparin 40 mg/0.4 mL Syringe SUBCUT (08:30)
[2024-06-10] MEDS: amlodipine 5 mg Tablet PO (08:40)
--- NOTE | 2024-06-10 09:53 | PC.SOCIAL ---
IMM Update pg 2 of IMM Updated and reviewed w/ patient and his . Copy provided and copy dated, initialed and placed in chart.
--- NOTE | 2024-06-10 11:54 | P.PN_ITS ---
Subjective 2 Subjective: NG tube 400 cc out Passing gas Distended Patient wants to get out of bed and shower Vitals/I&O/Wt Last Vital Signs Temp 98.1 F 06/10/24 11:15 Pulse 67 06/10/24 11:15 Resp 16 06/10/24 11:15 BP 165/79 06/10/24 11:15 Pulse Ox 90 06/10/24 11:15 O2 Del Method Room Air 06/10/24 11:15 O2 Flow Rate 1 06/09/24 11:30 06/09/24 06/10/24 06/10/24 22:59 06:59 14:59 Intake Total 485 / 973.75 978.333 / 1952.083 930 / 930 Output Total 575 / 575 375 / 950 Balance -90 / 398.75 603.333 / 1002.083 930 / 930 Weight last 48 hrs Weight 194 lb 2 oz Weight 192 lb 9.6 oz Weight 170 lb Physical Exam 2 Narrative: Chest: Unlabored breathing room air. No lymphadenopathy. Heart: Regular rate and rhythm. Abdomen: Soft, appropriately tender, distended. No masses or lymphadenopathy. Incision c/d/i. Urinary Catheter Management: Salas: Cath Placed During This Visit: yes, but has since been removed by the nurse Reason for Continuing Indwelling Catheter: Decision to DC Catheter Urinary Catheter Date of Insertion: 06/08/24 Urinary Catheter Time of Insertion: 12:04 Date Urinary Catheter Removed: 06/08/24 Time Urinary Catheter Discontinued: 23:36 Data 06/10/24 04:54 06/10/24 04:54 A&P Assessment and plan (1) Small bowel obstruction: Plan 78-year-old male status post ex lap with small bowel resection for closed-loop SBO. Awaiting return of bowel function. Encouraged patient to walk and sit in the chair as much as possible. NG tube can be clamped for walks. NG tube should be placed to low continuous suction when patient is in bed. If this extension is improved tomorrow we will remove NG tube. Attestations 2 Medical Necessity Statement*: IV fluids, IV pain meds, NG tube to low continuous suction Coding Level of Care Code 51971 Diagnoses Small bowel obstruction K56.609 Time Spent (min) 30
--- NOTE | 2024-06-10 21:18 | PC.NURSE ---
patient ng tube intact running interminttent suction. bowel sounds present. at bedside. fluids running at 100 ml/hr. no complaints at this time
--- NOTE | 2024-06-10 21:24 | PC.NURSE ---
patient inscision to abdomen dry kimberlyn intact and open to air, slight drainage noted around belly button
[2024-06-11] VITALS (8 sets, daily range): BP systolic 137–159; BP diastolic 70–83; PULSE 64–78; RESP 16–18; TEMP 36.5–37.1; O2SAT 91–94
[2024-06-11] MEDS: ondansetron 2 mg/ML SDV 2 mL 4 MG IVP ×2 (02:24→06:14)
[2024-06-11] MEDS: HYDROmorphone 1 mg/mL INJ 1 mL 0.5 MG IVP ×2 (02:25→06:13)
[2024-06-11 03:40] LABS: Basophils % 0.2 %; Hematocrit 49.6 % (37-53); Lymphocytes # 0.8 10^3/uL (0.8-4.8); Lymphocytes % 6.1 %; Mean Corpuscular HGB Conc 32.9 g/dL (30-55); Mean Corpuscular Hemoglobin 29.9 pg (27-33); Mean Platelet Volume 10.1 fL (7.4-10.4); Monocytes # 0.8 10^3/uL (0.2-0.9); Monocytes % 6.7 %; Neutrophils # 10.88 10^3/uL (1.8-7.7); Neutrophils % 86.6 %; Nucleated Red Blood Cells % 0 %; Platelet Count 144 10^3/cmm (157-399); Red Blood Count 5.45 10^6/uL (3.85-5.65); Red Cell Distribution Width 15.5 % (12.1-15.1); White Blood Count 12.56 10^3/uL (3.29-11.43)
[2024-06-11 04:06] LABS: Anion Gap 12.3 (5-19); Blood Urea Nitrogen 32 mg/dL (8-23); Calcium 8.3 mg/dL (8.5-10.5); Carbon Dioxide 25 mmol/L (22-29); Chloride 111 mmol/L (98-107); Creatinine Clr Calc Pharmacy 61.7604; Glucose 134 mg/dL (65-115); Osmolality Calculated 307 mOsm/kg (285-295); Potassium 4.3 mmol/L (3.5-5.1); Sodium 144 mmol/L (136-145)
[2024-06-11] MEDS: enoxaparin 40 mg/0.4 mL Syringe SUBCUT (08:24)
[2024-06-11] MEDS: pantoprazole 40 mg SDV IVP (08:25)
[2024-06-11] MEDS: sodium chloride 0.9% 1,000 ML 100 ML IV (09:40)
--- NOTE | 2024-06-11 09:55 | XRR_ITS ---
PROCEDURE INFORMATION: Exam: XR Abdomen Exam date and time: 06/11/2024 1:03 PM Age: 78 years old Clinical indication: Prior surgery; Surgery date: 3-7 days post-operative; Surgery type: Bowel resection (ischemic bowel); Patient HX: Abdominal pain; N/v; Post op bowel resection x 3 days ago; HX ischemic bowel TECHNIQUE: Imaging protocol: Radiologic exam of the abdomen. Views: Frontal supine view of the abdomen. 1 View. COMPARISON: CT abdomen pelvis w con* [id number] 06/08/2024 9:17 AM FINDINGS: Gastrointestinal tract: There is a long segment of dilated gas-filled small bowel visible throughout the abdomen. There is a small volume of gas in the colon. Intraperitoneal space: There is a staple line in the midline lower abdomen. No gross free air is visible although the diaphragm is not imaged. Bones/joints: There is intact posterolateral fusion hardware at L4-L5. 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 No acute osseous findings. XR/XR KUB portable [id number] IMPRESSION: Dilated gas-filled small bowel consistent with obstruction or ileus.
[2024-06-11 10:43] LABS: Magnesium 2.2 mg/dL (1.7-2.3); Phosphorus 2.4 mg/dL (2.5-4.5)
--- NOTE | 2024-06-11 10:47 | XRR_ITS ---
PROCEDURE INFORMATION: Exam: XR Chest Exam date and time: 06/11/2024 1:03 PM Age: 78 years old Clinical indication: Cough and shortness of breath; Patient HX: Cough; SOB TECHNIQUE: Imaging protocol: Radiologic exam of the chest. Views: 1 view. COMPARISON: CR XR KUB portable [id number] 06/11/2024 1:03 PM FINDINGS: Lungs: Mild platelike opacity at the left lung base. Right lung is clear. Pleural spaces: The left lateral costophrenic sulcus is blunted. No pneumothorax. Heart/Mediastinum: Cardiomediastinal contours are unremarkable. Bones/joints: Bones are unremarkable. Gastrointestinal tract: Gas distended small bowel is visible in the upper abdomen. XR/XR chest 1V portable [id number] IMPRESSION: Platelike opacity at the left lung base and blunting of the left lateral costophrenic sulcus probably represents atelectasis.
[2024-06-11] MEDS: metoclopramide 5 mg/mL SDV 2 mL IVP (11:39)
--- NOTE | 2024-06-11 12:44 | P.PN_ITS ---
Subjective 2 Subjective: Passing gas consistently Distention decreased NG tube minimal output Midline clean dry intact Vitals/I&O/Wt Last Vital Signs Temp 97.8 F 06/11/24 11:58 Pulse 67 06/11/24 11:58 Resp 16 06/11/24 11:58 BP 159/73 06/11/24 11:58 Pulse Ox 94 06/11/24 11:58 O2 Del Method Room Air 06/11/24 11:58 O2 Flow Rate 1 06/09/24 11:30 06/10/24 06/11/24 06/11/24 22:59 06:59 14:59 Intake Total 996.667 / 8423.548 9107 / 1000 Output Total 100 / 100 Balance 996.667 / 1926.667 -100 / 6100.882 6491 / 1000 Weight last 48 hrs Weight 191 lb 3 oz Weight 194 lb 2 oz Physical Exam 2 Narrative: Chest: Unlabored breathing room air. No lymphadenopathy. Heart: Regular rate and rhythm. Abdomen: Soft, nontender, mildly distended. No masses or lymphadenopathy. Urinary Catheter Management: Salas: Cath Placed During This Visit: yes, but has since been removed by the nurse Reason for Continuing Indwelling Catheter: Decision to DC Catheter Urinary Catheter Date of Insertion: 06/08/24 Urinary Catheter Time of Insertion: 12:04 Date Urinary Catheter Removed: 06/08/24 Time Urinary Catheter Discontinued: 23:36 Data 06/11/24 03:24 06/11/24 03:24 A&P Assessment and plan (1) Small bowel obstruction: Plan 78-year-old male who presented with closed-loop SBO. Doing well after a exploratory laparotomy with small bowel resection. Okay to remove NG tube. Will advance to clear liquids. Will discontinue IV fluids. Attestations 2 Medical Necessity Statement*: NG tube, IV fluids, awaiting return of bowel function after major abdominal surgery Coding Level of Care Code 56053 Diagnoses Small bowel obstruction K56.609 Time Spent (min) 30
--- NOTE | 2024-06-11 15:47 | P.PN_ITS ---
Subjective 2 Subjective: Patient was seen this morning, does report hiccups, has not passed any gas from below, no nausea, no vomiting, no stooling, denies any lightheadedness, no dizziness, currently NG tube in place Vitals/I&O/Wt Last Vital Signs Temp 97.8 F 06/11/24 11:58 Pulse 67 06/11/24 11:58 Resp 16 06/11/24 11:58 BP 159/73 06/11/24 11:58 Pulse Ox 94 06/11/24 11:58 O2 Del Method Room Air 06/11/24 11:58 O2 Flow Rate 1 06/09/24 11:30 06/11/24 06/11/24 06/11/24 06:59 14:59 22:59 Intake Total 1000 / 1000 Output Total 100 / 100 Balance -100 / 7645.489 7013 / 1000 Weight last 48 hrs Weight 86.721 kg Weight 88.054 kg Physical Exam 2 Const: COMMON NORMALS: no acute distress and patient oriented x3 Resp: COMMON NORMALS: normal respiratory effort, No retractions, No use of accessory muscles and clear to auscultation bilaterally AUSCULTATION: clear to auscultation bilaterally Cardio: COMMON NORMALS: regular rate, regular rhythm, S1 normal heart sound present and S2 normal heart sound present RATE: regular rate RHYTHM: r egular rhythm HEART SOUNDS: S1 normal heart sound present and S2 normal heart sound present GI: OTHER: Abdomen soft, slightly distended, surgical site looks clean and dry, no guarding, no rebound, rigidity Extremity: COMMON NORMALS: no pedal edema Neuro: COMMON NORMALS: patient oriented x3 Psych: COMMON NORMALS: mental status grossly normal Urinary Catheter Management: Salas: Cath Placed During This Visit: yes, but has since been removed by the nurse Reason for Continuing Indwelling Catheter: Decision to DC Catheter Urinary Catheter Date of Insertion: 06/08/24 Urinary Catheter Time of Insertion: 12:04 Date Urinary Catheter Removed: 06/08/24 Time Urinary Catheter Discontinued: 23:36 Data 06/11/24 03:24 06/11/24 03:24 A&P Assessment and plan (1) Small bowel obstruction: Closed-loop small bowel obstruction Status post exploratory laparotomy, lysis of adhesions, 20 cm distal ileum resection, small bowel anastomosis Post op day 3 Currently has NG tube in place For pain Dilaudid IV 0.5mg q4hrs Currently on IV fluids Incentive spirometer was ordered Encourage ambulation Continue IV Protonix On DVT prophylaxis Lovenox (2) Nausea & vomiting: (3) Hypertension: Plan Plan for today patient complains of hiccups, chest x-ray, KUB, can use Reglan Attestations 2 Medical Necessity Statement*: Patient requires hospitalization for bowel obstruction status post surgical intervention Diagnoses Small bowel obstruction K56.609 Nausea & vomiting R11.2 Hypertension I10
[2024-06-11] MEDS: oxyCODONE 5 mg IR Tab/Cap PO (17:26)
[2024-06-12] VITALS: BP 152/77; PULSE 63; RESP 17; TEMP 36.7; O2SAT 93
[2024-06-12 04:00] VITALS: BP 162/81; PULSE 61; RESP 17; TEMP 36.7; O2SAT 92
[2024-06-12] MEDS: metoclopramide 5 mg/mL SDV 2 mL IVP ×2 (04:05→12:36)
[2024-06-12 04:11] VITALS: RESP 16
[2024-06-12] MEDS: oxyCODONE 5 mg IR Tab/Cap PO (04:11)
[2024-06-12 04:49] LABS: Basophils % 0.2 %; Eosinophils % 0.4 %; Hematocrit 44.1 % (37-53); Lymphocytes # 1.1 10^3/uL (0.8-4.8); Lymphocytes % 11.2 %; Mean Corpuscular HGB Conc 34.2 g/dL (30-55); Mean Corpuscular Hemoglobin 30.4 pg (27-33); Mean Corpuscular Volume 88.7 fl (82-101); Mean Platelet Volume 10.6 fL (7.4-10.4); Monocytes # 0.7 10^3/uL (0.2-0.9); Monocytes % 6.8 %; Neutrophils # 7.72 10^3/uL (1.8-7.7); Neutrophils % 81.1 %; Nucleated Red Blood Cells % 0 %; Platelet Count 148 10^3/cmm (157-399); Red Blood Count 4.97 10^6/uL (3.85-5.65); Red Cell Distribution Width 15.3 % (12.1-15.1); White Blood Count 9.53 10^3/uL (3.29-11.43)
[2024-06-12 05:15] LABS: Alanine Aminotransferase 20 U/L (0-41); Albumin Level 2.7 g/dL (3.5-5.2); Alkaline Phosphatase 46 U/L (40-130); Blood Urea Nitrogen 32 mg/dL (8-23); Calcium 7.9 mg/dL (8.5-10.5); Carbon Dioxide 25 mmol/L (22-29); Chloride 105 mmol/L (98-107); Creatinine Clr Calc Pharmacy 71.2293; Globulin 2.4 g/dL (1.3-4.6); Glucose 103 mg/dL (65-115); Osmolality Calculated 293 mOsm/kg (285-295); Phosphorus 2.4 mg/dL (2.5-4.5); Sodium 138 mmol/L (136-145); Total Protein 5.1 g/dL (6.6-8.7)
[2024-06-12 05:19] LABS: Anion Gap 11.8 (5-19); Aspartate Amino Transferase 16 U/L (0-40); Potassium 3.8 mmol/L (3.5-5.1)
--- NOTE | 2024-06-12 06:36 | PC.NURSE ---
Education was provided this shift regarding when to taking Reglan for hiccups, as well as potential SE such as Tardive Dyskinesia with repeated frequent dosing. Pt verbalized understanding.
[2024-06-12 07:59] VITALS: BP 154/70; PULSE 60; RESP 18; TEMP 36.4; O2SAT 92
[2024-06-12] MEDS: pantoprazole 40 mg SDV IVP (08:05)
[2024-06-12] MEDS: enoxaparin 40 mg/0.4 mL Syringe SUBCUT (08:05)
[2024-06-12] MEDS: amlodipine 5 mg Tablet PO (08:06)
--- NOTE | 2024-06-12 11:35 | P.PN_ITS ---
Subjective 2 Subjective: Passing gas No burping Distention is improved Tolerating clears Hungry Vitals/I&O/Wt Last Vital Signs Temp 97.5 F L 06/12/24 07:59 Pulse 60 06/12/24 07:59 Resp 18 06/12/24 07:59 BP 154/70 06/12/24 07:59 Pulse Ox 92 06/12/24 07:59 O2 Del Method Room Air 06/12/24 07:59 O2 Flow Rate 1 06/09/24 11:30 06/11/24 06/12/24 06/12/24 22:59 06:59 14:59 Intake Total 120 / 1120 360 / 1480 480 / 480 Output Total 200 / 200 600 / 800 Balance -80 / 920 -240 / 680 480 / 480 Weight last 48 hrs Weight 170 lb Weight 191 lb 3 oz Physical Exam 2 Narrative: Chest: Unlabored breathing room air. No lymphadenopathy. Heart: Regular rate and rhythm. Abdomen: Soft, tender, mildly distended. No masses or lymphadenopathy. Urinary Catheter Management: Salas: Cath Placed During This Visit: yes, but has since been removed by the nurse Reason for Continuing Indwelling Catheter: Decision to DC Catheter Urinary Catheter Date of Insertion: 06/08/24 Urinary Catheter Time of Insertion: 12:04 Date Urinary Catheter Removed: 06/08/24 Time Urinary Catheter Discontinued: 23:36 Data 06/12/24 04:06 06/12/24 04:06 A&P Assessment and plan (1) Small bowel obstruction: Plan 78-year-old male status post ex lap with small bowel resection for closed-loop SBO. Having bowel function. Advancing to regular diet. Will make sure he tolerates a regular diet before discharging. Attestations 2 Medical Necessity Statement*: Monitoring patient on regular diet prior to discharge Coding Level of Care Code 97376 Diagnoses Small bowel obstruction K56.609 Time Spent (min) 30
[2024-06-12 12:20] VITALS: BP 145/74; PULSE 61; RESP 20; TEMP 36.5; O2SAT 94
[2024-06-12] MEDS: cyclobenzaprine 10 mg Tablet 5 MG PO (13:19)
--- NOTE | 2024-06-12 13:24 | P.PN_ITS ---
Subjective 2 Subjective: Patient was seen this morning, denies any nausea, he is passing gas from below, not had a bowel Vitals/I&O/Wt Last Vital Signs Temp 97.7 F 06/12/24 12:20 Pulse 61 06/12/24 12:20 Resp 20 H 06/12/24 12:20 BP 145/74 06/12/24 12:20 Pulse Ox 94 06/12/24 12:20 O2 Del Method Room Air 06/12/24 12:20 O2 Flow Rate 1 06/09/24 11:30 06/11/24 06/12/24 06/12/24 22:59 06:59 14:59 Intake Total 120 / 1120 360 / 1480 1600 / 1600 Output Total 200 / 200 600 / 800 Balance -80 / 920 -240 / 680 1600 / 1600 Weight last 48 hrs Weight 77.111 kg Weight 86.721 kg Physical Exam 2 Const: COMMON NORMALS: no acute distress and patient oriented x3 Resp: COMMON NORMALS: normal respiratory effort, No retractions, No use of accessory muscles and clear to auscultation bilaterally AUSCULTATION: clear to auscultation bilaterally Cardio: COMMON NORMALS: regular rate, regular rhythm, S1 normal heart sound present and S2 normal heart sound present RATE: regular rate RHYTHM: r egular rhythm HEART SOUNDS: S1 normal heart sound present and S2 normal heart sound present GI: COMMON NORMALS: Normal to inspection, nondistended, normoactive bowel sounds present and non-tender Extremity: COMMON NORMALS: no pedal edema Neuro: COMMON NORMALS: patient oriented x3 Psych: COMMON NORMALS: mental status grossly normal Urinary Catheter Management: Salas: Cath Placed During This Visit: yes, but has since been removed by the nurse Reason for Continuing Indwelling Catheter: Decision to DC Catheter Urinary Catheter Date of Insertion: 06/08/24 Urinary Catheter Time of Insertion: 12:04 Date Urinary Catheter Removed: 06/08/24 Time Urinary Catheter Discontinued: 23:36 Data 06/12/24 04:06 06/12/24 04:06 A&P Assessment and plan (1) Small bowel obstruction: Closed-loop small bowel obstruction Status post exploratory laparotomy, lysis of adhesions, 20 cm distal ileum resection, small bowel anastomosis Post op day 3 Currently has NG tube in place For pain Dilaudid IV 0.5mg q4hrs Currently on IV fluids Incentive spirometer was ordered Encourage ambulation Continue IV Protonix On DVT prophylaxis Lovenox (2) Nausea & vomiting: (3) Hypertension: Plan Plan for today will likely be discharged today, continues to have hiccups, will try Flexeril to help with hiccups, has never had an issue with muscle relaxers in the past Attestations 2 Medical Necessity Statement*: Patient requires hospitalization for bowel obstruction, will be discharged today Diagnoses Small bowel obstruction K56.609 Nausea & vomiting R11.2 Hypertension I10
--- NOTE | 2024-06-13 15:43 | P.DS_ITS ---
Discharge Providers Date of Admission: 06/08/24 12:39 Date of Discharge: June 13, 2024 Attending Provider at Admission: Ian Murry MD Attending Provider at Discharge: Ian Murry MD Primary Care Provider: Roger Nassar MD Diagnoses at Discharge Discharge Diagnosis (1) Small bowel obstruction: Status: Resolved (2) Nausea & vomiting: Status: Resolved (3) Hypertension: Status: Resolved Reason for Visit Reason for Visit: v,pain in abd Hospital Course Hospital Course 78-year-old male who presented with an SBO with closed-loop. Taken to the operating room emergently for exploratory laparotomy and small bowel resection. Patient did well postoperatively. He was discharged once bowel function had resumed and was tolerating regular diet. Physical Exam Narrative: Chest: Unlabored breathing room air. No lymphadenopathy. Heart: Regular rate and rhythm. Abdomen: Soft, appropriately tender, mildly distended. No masses or lymphadenopathy. Midline wound intact kimberlyn in place. Urinary Catheter Management: Salas: Cath Placed During This Visit: yes, but has since been removed by the nurse Reason for Continuing Indwelling Catheter: Decision to DC Catheter Urinary Catheter Date of Insertion: 06/08/24 Urinary Catheter Time of Insertion: 12:04 Date Urinary Catheter Removed: 06/08/24 Time Urinary Catheter Discontinued: 23:36 Discharge Data Studies Completed and Pending Completed Studies During Hospitalization Category Date Time Status CT abdomen pelvis w con* [id number] Stat Cat Scan 06/08/24 07:43 Completed XR KUB portable [id number] Routine Exams 06/11/24 09:55 Completed XR chest 1V portable [id number] Routine Exams 06/11/24 10:47 Completed Pending at discharge Category Date Time Status Pathology: Surgical [PTH] Routine Pth 06/08/24 13:41 Received Radiology Impressions Abdomen/Pelvis CT 06/08/24 07:43 IMPRESSION: 1. High-grade small bowel obstruction with a transition point in the RIGHT lower quadrant. Ischemic changes in the distal small bowel loops at the site of the obstruction with extensive mesenteric edema. No free air is identified at this time but patient is at risk for perforation. 2. Small amount of free fluid in the pelvis. 3. Mild dependent changes at the LEFT lung base may be developing pneumonia or pneumonitis. 4. Prior cholecystectomy. 5. Atherosclerosis aorta and iliac arteries. Notified Jhony Delarosa MD at 06/08/2024 10:09 AM. KUB X-Ray 06/11/24 09:55 IMPRESSION: Dilated gas-filled small bowel consistent with obstruction or ileus. Chest X-Ray 06/11/24 10:47 IMPRESSION: Platelike opacity at the left lung base and blunting of the left lateral costophrenic sulcus probably represents atelectasis. Laboratory Results WBC 9.53 10^3/uL (3.29-11.43) 06/12/24 04:06 RBC 4.97 10^6/uL (3.85-5.65) 06/12/24 04:06 Hgb 15.10 g/dL (11.27-16.99) 06/12/24 04:06 Hct 44.1 % (37-53) 06/12/24 04:06 MCV 88.7 fl (82-101) 06/12/24 04:06 MCH 30.4 pg (27-33) 06/12/24 04:06 MCHC 34.2 g/dL (30-55) 06/12/24 04:06 RDW 15.3 % (12.1-15.1) H 06/12/24 04:06 Plt Count 148 10^3/cmm (157-399) L 06/12/24 04:06 MPV 10.6 fL (7.4-10.4) H 06/12/24 04:06 Neut % (Auto) 81.1 % 06/12/24 04:06 Lymph % (Auto) 11.2 % 06/12/24 04:06 [place] % (Auto) 6.8 % 06/12/24 04:06 Eos % (Auto) 0.4 % 06/12/24 04:06 Baso % (Auto) 0.2 % 06/12/24 04:06 Neut # (Auto) 7.72 10^3/uL (1.8-7.7) H 06/12/24 04:06 Lymph # (Auto) 1.1 10^3/uL (0.8-4.8) 06/12/24 04:06 [place] # (Auto) 0.7 10^3/uL (0.2-0.9) 06/12/24 04:06 Eos # (Auto) 0.0 10^3/uL (0.0-0.8) 06/12/24 04:06 Baso # (Auto) 0.0 10^3/uL (0.0-0.1) 06/12/24 04:06 Nucleated RBC % (auto) 0 % 06/12/24 04:06 Nucleated RBCs # 0.0 /100WBC 06/12/24 04:06 Sodium 138 mmol/L (136-145) 06/12/24 04:06 Potassium 3.8 mmol/L (3.5-5.1) 06/12/24 04:06 Chloride 105 mmol/L (98-107) 06/12/24 04:06 Carbon Dioxide 25 mmol/L (22-29) 06/12/24 04:06 Anion Gap 11.8 (5-19) 06/12/24 04:06 BUN 32 mg/dL (8-23) H 06/12/24 04:06 Creatinine 0.9 mg/dL (0.7-1.2) 06/12/24 04:06 GFR Calculation Not Reportable 06/12/24 04:06 Glucose 103 mg/dL (65-115) 06/12/24 04:06 Calculated Osmolality 293 mOsm/kg (285-295) 06/12/24 04:06 Lactic Acid 2.2 mmol/L (0.5-2.2) 06/08/24 08:02 Lactic Acid (Sepsis) 1.8 mmol/L (0.5-2.2) 06/08/24 11:02 Calcium 7.9 mg/dL (8.5-10.5) L 06/12/24 04:06 Phosphorus 2.4 mg/dL (2.5-4.5) L 06/12/24 04:06 Magnesium 2.0 mg/dL (1.7-2.3) 06/12/24 04:06 Total Bilirubin 1.0 mg/dL (0.15-1.2) 06/12/24 04:06 AST 16 U/L (0-40) 06/12/24 04:06 ALT 20 U/L (0-41) 06/12/24 04:06 Alkaline Phosphatase 46 U/L (40-130) 06/12/24 04:06 Total Protein 5.1 g/dL (6.6-8.7) L 06/12/24 04:06 Albumin 2.7 g/dL (3.5-5.2) L 06/12/24 04:06 Globulin 2.4 g/dL (1.3-4.6) 06/12/24 04:06 Lipase 23 U/L (13-60) 06/08/24 08:02 Urine Color Yellow (Yellow) 06/08/24 09:33 Urine Appearance Clear (CLEAR) 06/08/24 09:33 Urine pH 8.0 (5-7) A 06/08/24 09:33 Ur Specific [place] 1.025 (1.005-1.030) 06/08/24 09:33 Urine Protein 1+ (Negative) A 06/08/24 09:33 Urine Glucose (UA) Trace (Normal) H 06/08/24 09: Urine Ketones 2+ (Negative) H 06/08/24 09:33 Urine Blood Negative (Negative) 06/08/24 09:33 Urine Nitrate Negative (Negative) 06/08/24 09:33 Urine Bilirubin Negative (Negative) 06/08/24 09:33 Urine Urobilinogen 1.0 mg/dL (Negative) 06/08/24 09:33 Ur Leukocyte Esterase Negative (Negative) 06/08/24 09:33 Urine RBC None /hpf (0-2) 06/08/24 09:33 Urine WBC None /hpf (0-5) 06/08/24 09:33 Ur Squamous Epith Cells None /hpf (0-5) 06/08/24 09:33 Amorphous Sediment Not Reportable 06/08/24 09:33 Urine Bacteria None /hpf (NONE) 06/08/24 09:33 Hyaline Casts 5-10 /lpf H 06/08/24 09:33 Urine Mucus 1+ /hpf 06/08/24 09:33 Vitals Last Vital Signs Temp 97.7 F 06/12/24 12:20 Pulse 61 06/12/24 12:20 Resp 20 H 06/12/24 12:20 BP 145/74 06/12/24 12:20 Pulse Ox 94 06/12/24 12:20 O2 Del Method Room Air 06/12/24 12:20 O2 Flow Rate 1 06/09/24 11:30 Discharge Plan Discharge Patient Disposition: Home Condition: Stable Prescriptions: New oxycodone 5 mg tablet 5 mg PO Q6H PRN (Reason: pain) 5 Days Qty: 10 0RF cyclobenzaprine 5 mg tablet 5 mg PO BID PRN (Reason: hiccups) 5 Days Qty: 10 0RF Rx Instructions: Don't drive, operate machinery or drink with take medication or use with oxycodone Continued (DME) Cam boot to the left See Rx Instructions .Route .MEDSUPPLY Qty: 1 0RF Rx Instructions: As directed (DME) Bone stimulator See Rx Instructions .Route .MEDSUPPLY Qty: 1 0RF Rx Instructions: As directed amlodipine 5 mg tablet 5 mg PO DAILY Qty: 90 11RF oxybutynin chloride 10 mg tablet extended release 24hr 10 mg PO DAILY Qty: 90 11RF acyclovir 400 mg tablet 400 mg PO TID PRN (Reason: cold sore) Qty: 30 5RF ibuprofen 200 mg tablet 200 mg PO Q6H PRN (Reason: Pain) acetaminophen [Tylenol Extra Strength] 500 mg tablet 500 mg PO Q6H MDD ] PRN (Reason: Pain) meloxicam 15 mg tablet 15 mg PO DAILY Qty: 30 11RF Rx Instructions: take with food lovastatin 20 mg tablet 20 mg PO DAILY simethicone 80 mg Tablet,Chewable 80 mg PO DAILY Discharge Orders: Discharge Order (Routine); Ordered 06/12/24 Ordered By: Ian Murry Referrals: Ian Murry MD [Physician] - 4-7 days (We have notified Dr. Murry's office of the need for a follow-up appointment to be scheduled. If you have not heard from them within the next 2 business days, please call them directly. ) Roger Nassar MD [Primary Care Provider] - (We have notified your physician's clinic of the need for a follow-up appointment to be scheduled. If you have not heard from them within the next 2 business days, please call them directly. ) Discharge Diet: Advance as tolerated Discharge Activity: Limit activity as instructed Patient Instructions: Cyclobenzaprine (By mouth) (Flexeril, Amrix, Fexmid, Fu sePaq Tabradol), Oxycodone, Rapid Release (By mouth), Acute Wound Care (DC), Laparoscopic Bowel Resection (GEN), Opioid Safety, Post Anesthesia Care Activity Restrictions/Additional Instructions: 1. No heavy exercise or lifting greater than 10lbs for 6 weeks. 2. No pools, saunas, bathtubs for [address] if taking narcotics. 4. You may take over the counter tylenol 650mg every 6 hrs and ibuprofen 400mg every 6 hrs as needed for 5 days in addition to the oxycodone. 5. Follow-up in clinic in 2 weeks. 6. Call the office if you have any concerns or questions. -Please use Flexeril as needed for hiccups, do not use with oxycodone, do not drive or operate heavy machinery or drink while taking medication. Discharge Attestations Time Spent in Discharge Care*: greater than 30 min Quality Metrics Clinical Quality Measures [ No reported AMI, CVA or VTE this stay] Coding Level of Care Code Acute Code for Chg Fwd Diagnoses Small bowel obstruction K56.609 Nausea & vomiting R11.2 Hypertension I10 Time Spent (min) 30
== END 2024-06-12 15:58 | disposition home or self-care (01) | DRG 329 ==
LOC: ER 10:54 → MEDSURG 12:40
PROVIDERS: Family Medicine; Internal Medicine; Admitting Provider Student in an Organized Health Care Education/Training Program; Emergency Provider Emergency Medicine; PCP Family Medicine; Visit Provider Student in an Organized Health Care Education/Training Program
PROC: 0DBB0ZZ Excision of Ileum, Open Approach (ICD-10-PCS; CPT 49000; principal; 2024-06-08 14:55)
PROC: 0DBB0ZZ Excision of Ileum, Open Approach (ICD-10-PCS; CPT 44120; 2024-06-08 14:55)
DX: K56.699 Other intestinal obstruction unspecified as to partial versus complete obstruction (principal); K55.029 Acute infarction of small intestine, extent unspecified; K21.9 Gastro-esophageal reflux disease without esophagitis; I10 Essential (primary) hypertension; E78.5 Hyperlipidemia, unspecified; M19.90 Unspecified osteoarthritis, unspecified site; Z86.711 Personal history of pulmonary embolism; Z86.718 Personal history of other venous thrombosis and embolism; Z90.49 Acquired absence of other specified parts of digestive tract; Z79.899 Other long term (current) drug therapy; Z88.8 Allergy status to other drugs, medicaments and biological substances; Z85.46 Personal history of malignant neoplasm of prostate
CPT/HCPCS: 36415; 51702; 71045; 74018; 74177; 80048; 80053; 81001; 83605; 83690; 83735; 84100; 85025; 88307; 96365; 96372; 96375; 99285; J0131; J0330; J1100; J1170; J1650; J2270; J2405; J2470; J2543; J2704; J2765; J3010; J3490; J7030; P9045

== ENCOUNTER → 2024-06-16 13:35 | Outpatient (BNVA) | payer MEDICARE, SELFPAY | PROVIDERS: PCP Family Medicine; Visit Provider Student in an Organized Health Care Education/Training Program | DX: Z09 Encounter for follow-up examination after completed treatment for conditions other than malignant neoplasm (principal) | CPT/HCPCS: 99024 ==